=== PATIENT | male | born 1960 | race Caucasian/White ===

== ENCOUNTER 2022-03-11 14:25 | Inpatient (IN) | payer BC ==
--- NOTE | 2022-03-11 15:18 | ED ---
General Adult HPI - General Source: patient, EMS, RN notes reviewed Mode of arrival: EMS Limitations: no limitations <Ludin Pham - Last Filed: 03/11/22 15:48> <Danilo Almazan - Last Filed: 03/11/22 22:11> - General Stated complaint: CHF Time Seen by Provider: 03/11/22 14:32 - History of Present Illness Initial comments: This a 62-year-old male presents emergency Department from [facility] as a transfer for evaluation of dyspnea. Patient states that his been feeling increasing short of breath the last few days. Patient does admit that he has colorectal cancer Current chemotherapy under Dr. Flores treatment. Patient states he finishes infusion to states . Patient states that he knows he felt more short of breath this morning which presented to [facility]. Patient found to have bilateral trace pleural effusions, elevated BNP at 28,000, elevated troponin at 0.359 troponin did increase from initial troponin, lactic acid was significantly elevated at 6.3. Patient has no obvious signs of infection patient denies any prior cardiac disease including CHF, prior cardiac stent. Patient denies any leg swelling he does admit that he is very anxious and did receive Ativan. Patient was given a dose of Lasix last started on heparin prior arrival. (Ludin Pham) - Related Data Home Medications Medication Instructions Recorded Confirmed Diphenoxylate HCl/Atropine 1 tab PO BID PRN 03/11/22 03/11/22 [Lomotil 2.5-0.025 mg Tablet] HYDROcodone/APAP 5-325MG [[place] 1 tab PO Q4HR PRN 03/11/22 03/11/22 5-325] Lidocaine Viscous 2% [Xylocaine 1 dose MUCOUS MEM BID PRN 03/11/22 03/11/22 Viscous] Omeprazole [PriLOSEC] 40 mg PO DAILY 03/11/22 03/11/22 Allergies Allergy/AdvReac Type Severity Reaction Status Date / Time No Known Allergies Allergy Verified 03/11/22 16:17 Review of Systems ROS Other: All systems not noted in ROS Statement are negative. <Ludin Pham - Last Filed: 03/11/22 15:48> ROS Other: All systems not noted in ROS Statement are negative. <Danilo Almazan - Last Filed: 03/11/22 22:11> ROS Statement: Those systems with pertinent positive or pertinent negative responses have been documented in the HPI. Past Medical History History of Any Multi-Drug Resistant Organisms: None Reported Past Psychological History: Anxiety Smoking Status: Never smoker Past Alcohol Use History: None Reported Past Drug Use History: None Reported <Ludin Pham - Last Filed: 03/11/22 15:48> General Exam Limitations: no limitations General appearance: alert, in no apparent distress, anxious Head exam: Present: atraumatic, normocephalic, normal inspection Eye exam: Present: normal appearance, PERRL, EOMI. Absent: scleral icterus, conjunctival injection, periorbital swelling ENT exam: Present: normal exam, normal oropharynx, mucous membranes moist Neck exam: Present: normal inspection, full ROM. Absent: tenderness, meningismus, lymphadenopathy Respiratory exam: Present: decreased breath sounds. Absent: normal lung sounds bilaterally, respiratory distress, wheezes, rales, rhonchi, stridor Cardiovascular Exam: Present: normal rhythm, tachycardia, normal heart sounds. Absent: systolic murmur, diastolic murmur, rubs, gallop, clicks Neurological exam: Present: alert, oriented X3, CN II-XII intact <Ludin Pham Gloria - Last Filed: 03/11/22 15:48> Course Vital Signs 03/11/22 03/11/22 03/11/22 14:48 17:00 18:00 Temperature 97.6 F Pulse Rate 75 143 H 147 H Pulse Rate [ Ict Project Manager ] Respiratory 18 18 18 Rate Blood Pressure 128/103 138/109 O2 Sat by Pulse 96 99 99 Oximetry 03/11/22 03/11/22 03/11/22 18:31 19:00 19:18 Temperature Pulse Rate 147 H 147 H Pulse Rate [ 147 H Ict Project Manager ] Respiratory 18 24 Rate Blood Pressure 125/95 137/99 O2 Sat by Pulse 98 95 Oximetry 03/11/22 20:00 Temperature Pulse Rate 141 H Pulse Rate [ Ict Project Manager ] Respiratory 22 Rate Blood Pressure 128/100 O2 Sat by Pulse 98 Oximetry EKG Findings - EKG Comments: EKG Findings:: EKG performed at 15:05 sinus tachycardia short LA interval noted, LA interval 97 QRS 96 QT/QTC 345/427 - EKG Results: EKG: interpreted by ERMD <Ludin Pham - Last Filed: 03/11/22 15:48> Medical Decision Making <Ludin Pham - Last Filed: 03/11/22 15:48> - EKG Data -: EKG Interpreted by Me <Danilo Almazan - Last Filed: 03/11/22 22:11> - Medical Decision Making 62-year-old male presented as transfer from [facility] for possible CHF. Patient does have significant elevated BMP at 28,500, patient has had persistent tachycardia 120s to 140s. Patient's CT did not show any evidence of PE did interpret bilateral trace pleural effusion. Patient's troponin was elevated at 0.352 second troponin 0.359 lactic acid did go from 6.3-5.0 there is not obvious overt signs of heart failure on chest x-ray patient was given Lasix prior arrival 60 mg. There is concerns for possible infection in which antibiotics, blood cultures were ordered. Patient reportedly had hypoxia 80% upon arrival [facility] urinalysis does not reveal any significant findings. I did discuss case with Dr. Nowak that this may be related to his chemotherapy patient will have echocardiogram, cardiology evaluation, oncology evaluation (Ludin Pham) Patient was admitted and I was notified after staff also notified the admitting team the results of the laboratory studies at approximate 6:15 PM. Lactic acid is worse compared earlier at 10.3 now. Troponin is also slightly increased to 0.4. Remains tachycardic with stable vital signs otherwise. Still appears to have normal sinus tachycardia. Patient was worked up thoroughly at the outside hospital, and appears there are concerns for the elevated troponin, nSTEMI, volume overload state and possibly heart failure with pleural effusions, no evidence of PE on CT imaging. Patient was on antibiotics but I made the more broad-spectrum at this time to vancomycin and cefepime. Patient was already started on heparin for his nSTEMI and had already received an aspirin at the outside facility.Has been surgery completed already and patient has a chronic ostomy in place. Normal ostomy output. Since remarkable for the sinus tachycardia. Blood pressure is within normal limits. Patient saturating well on 2 L nasal cannula. Has remained afebrile throughout his stay in the emergency department. I spoke and evaluated the patient myself at this time. Symptoms remained unchanged. Has had a week of progressively worsening shortness of breath. Last chemo was 4 days ago. No cardiac history. Due to patient's current condition, I did consult the ICU attending/pulmonary attending, Dr. Salomon and spoke with him regarding the patient. He believes the patient is appropriate for 3 self at this time but recommended with the elevated lactic acid to trial the patient with small fluid boluses of 500 mL at a time to see if that improves his symptoms, particularly his Tachycardia and his labs. He otherwise was in agreement with the plan for treatment. We'll continue small fluid boluses, treatment for his an STEMI, and cardiac monitoring. Patient will be admitted to the stepdown floor. Cardiology was already consulted as was oncology. I spoke with oncology Dr. Morel who states that the patient is likely experiencing cardiac toxicity from a chemotherapy drug. She asked that the patient was taking 5-FU, which I did clarify and he is. I also spoke with Dr. Vick of cardiology regarding the current symptoms, workup, laboratory study results. He recommended current therapy, as well as addition of metoprolol due to the demand ischemia seen with elevated troponin and T-wave inversions. It doesn't troponin was ordered for this evening to help with the patient's heart rate, as his blood pressures are within acceptable limits at this time. We'll continue IV fluid hydration. I did discuss this entire plan with the patient's admitting physician, Dr. Landeros was in agreement with the plan. Repeat EKG was obtained and revealed continued T-wave inversions in lateral precordial leads likely from demand ischemia as well as sinus tachycardia. I updated the patient as well as his , and answered all questions that they had. Patient will be admitted to stepdown at this time in serious condition. (Danilo Almazan) - Lab Data Lab Results 03/11/22 03/11/22 03/11/22 Range/Units 16:00 16:00 16:39 Lactic Ac Sepsis Rflx Y Plasma Lactic Acid Stoney 10.3 H* (0.7-2.0) mmol/L Troponin I 0.435 H* (0.000-0.034) ng/mL - EKG Data EKG Comments: 12-lead Electrocardiogram Interpretation Note EKG was reviewed and interpreted by myself. 12-lead ECG performed at 1910 is interpreted by me as revealing sinus tachycardia at a rate of 148 beats per minute. [place] is normal. LA interval is 99 ms, QRS duration is 113 ms, QTc is 412 ms.. There are T-wave inversions in the lateral precordial leads likely secondary to demand ischemia from current cardiotoxicity from his chemotherapy drug.. R wave progression across the precordium was satisfactory. (Danilo Almazan) Critical Care Time Critical Care Time: Yes Total Critical Care Time: 35 <Danilo Almazan - Last Filed: 03/11/22 22:11> Critical Care Time: Upon my evaluation, this patient had a high probability of imminent or life- threatening deterioration due to cardiac toxicity from chemotherapy drug, demand ischemia, CHF, which required my direct attention, intervention, and personal management. I have personally provided 35 minutes of critical care time exclusive of time spent on separately billable procedures. Time includes review of laboratory data, radiology results, discussion with consultants, and monitoring for potential decompensation. Interventions were performed as documented in my note. (Danilo Almazan) Disposition Time of Disposition: 15:52 <Ludin Pham - Last Filed: 03/11/22 15:48> <Danilo Almazan - Last Filed: 03/11/22 22:11> Clinical Impression: Dyspnea, Tachycardia, NSTEMI (non-ST elevated myocardial infarction), Colon cancer, Pleural effusion, On 5-fluorouracil (5-FU) therapy, Lactic acidosis, Demand ischemia Disposition: ADMITTED IP TO THIS HOSP Condition: Poor
--- NOTE | 2022-03-11 15:31 | XR ---
EXAMINATION TYPE: XR chest 1V portable DATE OF EXAM: 03/11/2022 COMPARISON: NONE HISTORY: Short of breath TECHNIQUE: Single view FINDINGS: There is no heart failure nor confluent pneumonic infiltrate. There is coarse interstitial density in the lower lung [place] and more on the right side. There is right central venous catheter w ith tip in the superior vena cava. There are chest leads. Heart is slightly enlarged. IMPRESSION: No obvious heart failure. Cardiomegaly with increased interstitial markings that could be pulmonary fibrosis.
[2022-03-11] MEDS ORDERED: AZITHROMYCIN 500 MG in SODIUM CHLORIDE 0.9% 250 ML IVPB STA (15:34)
[2022-03-11] MEDS ORDERED: HEPARIN SODIUM 1,000 UN/ML (10ML VL) IV ONE (15:53)
[2022-03-11] MEDS ORDERED: HEPARIN SODIUM 1,000 UN/ML (10ML VL) IV PRN (15:53)
[2022-03-11] MEDS ORDERED: NITROGLYCERIN SL TABS 0.4 MG TAB SUBLINGUAL PRN (15:53)
[2022-03-11] MEDS ORDERED: HEPARIN SOD,PORK IN 0.45% NACL 25,000 UNIT in 0.45% NACL 1 250ML.BAG IV SCH (16:00)
[2022-03-11] MEDS ORDERED: LACTATED RINGERS 1,000 ML IV SCH (18:15)
[2022-03-11] MEDS ORDERED: SODIUM CHLORIDE 0.9% 500 ML 500 ML IV STA (18:26)
[2022-03-11] MEDS ORDERED: VANCOMYCIN IV PER PHARMACY 1 EACH MISC MISCELLANE PRN (18:27)
[2022-03-11] MEDS ORDERED: VANCOMYCIN 1,500 MG in SODIUM CHLORIDE 0.9% 500 ML 500 ML IVPB ONE (18:45)
[2022-03-11] MEDS ORDERED: METOPROLOL SUCCINATE (ER) 50 MG TAB.ER.24H PO STA (18:51)
[2022-03-11 23:14] LABS: Albumin 3.3 g/dL (3.5-5.0); Calcium 8.3 mg/dL (8.4-10.2); Magnesium 2.2 mg/dL (1.6-2.3); Potassium 4.8 mmol/L (3.5-5.1); Total Bilirubin 2.5 mg/dL (0.2-1.3); Total Protein 5.9 g/dL (6.3-8.2)
[2022-03-11 23:30] LABS: Anisocytosis Slight; Basophils # (A) 0.1 k/uL (0-0.2); Basophils % (A) 1 %; Eosinophils % (A) 0 %; HCT 38.8 % (39.0-53.0); HGB 11.9 gm/dL (13.0-17.5); Hypochromasia Marked; Lymphocytes # (A) 0.8 k/uL (1.0-4.8); Lymphocytes % (A) 11 %; MCH 29.7 pg (25.0-35.0); MCHC 30.8 g/dL (31.0-37.0); MCV 96.6 fL (80.0-100.0); Macrocytosis Slight; Mean Platelet Volume 11.2; Monocytes # (A) 0.1 k/uL (0-1.0); Monocytes % (A) 1 %; Neutrophils % (A) 87 %; Platelet Count 163 k/uL (150-450); RBC 4.02 m/uL (4.30-5.90); RDW 18.2 % (11.5-15.5); WBC 6.9 k/uL (3.8-10.6)
[2022-03-12] MEDS ORDERED: SODIUM CHLORIDE 0.9% 500 ML 250 ML IV ONE
[2022-03-12] MEDS ORDERED: metroNIDAZOLE-NS PMX 500 MG in SALINE 1 100ML.BAG IVPB SCH
[2022-03-12] MEDS ORDERED: CEFEPIME 2 GM in SODIUM CHLORIDE 0.9% 100 ML IVPB SCH ×2
[2022-03-12 00:01] LABS: Large Platelets Present
[2022-03-12] MEDS ORDERED: FUROSEMIDE 10 MG/ML 2 ML VIAL IV STA (00:33)
[2022-03-12] MEDS ORDERED: FUROSEMIDE 10 MG/ML 4 ML VIAL ONE (00:35)
--- NOTE | 2022-03-12 00:58 | XR ---
EXAMINATION TYPE: XR chest 1V portable DATE OF EXAM: 03/12/2022 COMPARISON: Yesterday HISTORY: Short of breath TECHNIQUE: Single view FINDINGS: Heart appears enlarged. There is some minimal pulmonary interstitial edema. There is right central venous catheter with tip in the superior vena cava. There is slight blunting of the right cos tophrenic angle. There are chest leads. IMPRESSION: There is some mild pulmonary interstitial edema which is the same or slightly increased c ompared to yesterday. There is likely a very small right pleural effusion. Mild heart failure is poss ible. No pulmonary consolidation.
[2022-03-12 01:02] LABS: Glucose,Whole Blood 100 mg/dL (70-110)
[2022-03-12] MEDS ORDERED: PIPERACILLIN-TAZOBACTAM 3.375 GM in SODIUM CHLORIDE 0.9% 100 ML IVPB SCH (03:00)
[2022-03-12] MEDS: VANCOMYCIN 1,500 MG in SODIUM CHLORIDE 0.9% 500 ML 500 ML IVPB SCH ×2 (08:36→21:08)
[2022-03-12] MEDS: PIPERACILLIN-TAZOBACTAM 3.375 GM in SODIUM CHLORIDE 0.9% 100 ML IVPB SCH ×2 (08:36→18:13)
[2022-03-12] MEDS ORDERED: METOPROLOL SUCCINATE (ER) 50 MG TAB.ER.24H PO SCH (09:00)
[2022-03-12] MEDS ORDERED: ASPIRIN 325 MG TAB PO SCH (09:00)
--- NOTE | 2022-03-12 13:24 | P.CNPUL ---
History of Present Illness Consult date: 03/12/22 Requesting physician: Da Landeros Reason for consult: other (Congestive heart failure and elevated lactic acid) Chief complaint: Shortness of breath. History of present illness: This is a 62-year-old white male with history of stage IV colon cancer. Patient was diagnosed a few years back, and he received recently chemotherapy this was last Sunday. Since then the patient has been complaining of shortness of breath, patient presented to [place] emergency room, and he was complaining of shortness of breath, workup revealed evidence of cardiomegaly, congestive heart failure, and he had a CT angiogram of the chest showed no evidence of pulmonary embolism. Patient was transferred to [facility], and he was found to have significantly elevated BNP, his troponin was also elevated, and he had significantly elevated lactic acid initially was 6.3 and later showed some rise in his lactic acid. Patient has been complaining of mostly shortness of breath, no cough, no wheezing, no nausea no vomiting no abdominal pain. Patient was given small boluses of fluids because of his congestive heart failure and elevated lactic acid, however after he arrived to the floor patient developed full-blown congestive heart failure symptoms, had to be given Lasix, and had to be transferred to the ICU. 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 Cardiology consultation is pending. Patient is not a great historian. He seems to be generally weak, frail, and unable to volunteer much history Review of Systems Patient is a poor historian, however according to the the patient has been complaining of generalized weakness, fatigue malaise, no fever no chills, no cough, no hemoptysis, no nausea, no vomiting, no abdominal pain. Past Medical History Past Medical History: Cancer, Heart Failure, Osteoarthritis (OA), Sleep Apnea/CPAP/BIPAP Additional Past Medical History / Comment(s): Rectal Cancer History of Any Multi-Drug Resistant Organisms: None Reported Past Surgical History: Bowel Resection Past Psychological History: Anxiety Smoking Status: Never smoker Past Alcohol Use History: None Reported Past Drug Use History: None Reported Medications and Allergies Home Medications Medication Instructions Recorded Confirmed Type Diphenoxylate HCl/Atropine 1 tab PO BID PRN 03/11/22 03/11/22 History [Lomotil 2.5-0.025 mg Tablet] HYDROcodone/APAP 5-325MG [[place] 1 tab PO Q4HR PRN 03/11/22 03/11/22 History 5-325] Lidocaine Viscous 2% [Xylocaine 1 dose MUCOUS MEM BID PRN 03/11/22 03/11/22 History Viscous] Omeprazole [PriLOSEC] 40 mg PO DAILY 03/11/22 03/11/22 History Allergies Allergy/AdvReac Type Severity Reaction Status Date / Time No Known Allergies Allergy Verified 03/11/22 16:17 Physical Exam Vitals: Vital Signs Temp Pulse Pulse Resp BP BP Pulse Ox 03/12/22 11:00 110 H 12 101/75 97 03/12/22 10:00 118 H 10 L 114/93 98 03/12/22 09:07 98 03/12/22 09:00 124 H 33 H 97/84 98 03/12/22 08:00 98.0 F 131 H 25 H 126/90 94 L 03/12/22 07:00 98.0 F 32 H 120/79 99 03/12/22 06:00 101.7 F H 130 H 47 H 106/85 98 03/12/22 05:00 99.4 F 129 H 0 L 110/89 99 03/12/22 04:00 99.4 F 134 H 31 H 110/89 98 03/12/22 03:00 100.4 F H 126 H 31 H 119/84 95 03/12/22 02:00 101.5 F H 128 H 36 H 126/87 95 03/12/22 01:33 125 H 32 H 112/84 91 L 03/12/22 01:20 130 H 03/12/22 00:11 101.5 F H 138 H 24 111/82 95 03/11/22 21:06 101.6 F H 140 H 22 120/88 95 03/11/22 20:00 141 H 22 128/100 98 03/11/22 19:18 147 H 03/11/22 19:00 147 H 24 137/99 95 03/11/22 18:31 147 H 18 125/95 98 03/11/22 18:00 147 H 18 138/109 99 03/11/22 17:00 143 H 18 99 03/11/22 14:48 97.6 F 75 18 128/103 96 Intake and Output 03/11/22 03/12/22 03/12/22 22:59 06:59 14:59 Intake Total 289.667 601 Output Total 1450 700 Balance -1160.333 -99 Intake: IV 200 601 Cefepime 2 gm In Sodium 100 Chloride 0.9% 100 ml @ 25 mls/hr IVPB Q8HR [facility] Rx# :[id number] Piperacillin-Tazobactam 3 100 .375 gm In Sodium Chloride 0.9% 100 ml @ 25 mls/hr IVPB Q8H [facility] Rx#: [id number] Vancomycin 1,500 mg In 501 Sodium Chloride 0.9% 500 ml 500 ml @ 167 mls/hr IVPB Q12H [facility] Rx#: [id number] metroNIDAZOLE-NS PMX 500 100 mg In Saline 1 100ml.bag @ 100 mls/hr IVPB Q12H [facility] Rx#:[id number] Intake, IV Titration 89.667 Amount Heparin Sod,Pork in 0.45% 89.667 NaCl 25,000 unit In 0.45 % NaCl 1 250ml.bag @ 11. 603 UNITS/KG/HR 10 mls/hr IV .Q24H [facility] Rx#: [id number] Output: Urine 1450 700 Other: Voiding Method External Catheter External Catheter External Catheter # Voids 1 Weight 85 kg Limitations: Patient seems to be extremely frail weak, and chronically ill. General appearance: Frail looking, ill-looking, and chronically ill-looking. Head exam: Atraumatic, normocephalic. Eye exam: normal appearance, PERRL, EOMI. no evidence of scleral icterus, conjunctival injection, periorbital swelling ENT exam: normal exam, normal oropharynx, mucous membranes moist Neck exam: normal inspection, full ROM. No evidence of: tenderness, meningismus, lymphadenopathy Respiratory exam: Symmetrical chest expansion, minimal fine crackles at the bases no rhonchi and no wheezes Cardiovascular Exam: Distant S1 and S2, no S3 gallop, no murmur. Neurological exam: Alert oriented 3, however he seems to be extremely frail and very weak Results - Laboratory Findings CBC and BMP: 03/11/22 22:37 03/12/22 02:35 Abnormal lab findings: Abnormal Labs 03/11/22 03/11/22 03/11/22 16:00 16:00 19:24 RBC Hgb Hct MCHC RDW Lymphocytes # APTT Carbon Dioxide BUN Creatinine Glucose Plasma Lactic Acid Stoney 10.3 H* Calcium Total Bilirubin AST ALT Troponin I 0.435 H* 0.547 H* Total Protein Albumin 03/11/22 03/11/22 03/11/22 19:24 22:37 22:37 RBC 4.02 L Hgb 11.9 L Hct 38.8 L MCHC 30.8 L RDW 18.2 H Lymphocytes # 0.8 L APTT Carbon Dioxide BUN Creatinine Glucose Plasma Lactic Acid Stoney 9.2 H* Calcium Total Bilirubin AST ALT Troponin I 0.530 H* Total Protein Albumin 03/11/22 03/11/22 03/11/22 22:37 22:37 22:37 RBC Hgb Hct MCHC RDW Lymphocytes # APTT 41.9 H Carbon Dioxide 18 L BUN 36 H Creatinine Glucose 106 H Plasma Lactic Acid Stoney 11.2 H* Calcium 8.3 L Total Bilirubin 2.5 H AST 189 H ALT 133 H Troponin I Total Protein 5.9 L Albumin 3.3 L 03/12/22 03/12/22 03/12/22 02:04 02:35 11:48 RBC Hgb Hct MCHC RDW Lymphocytes # APTT 39.3 H 92.8 H Carbon Dioxide BUN Creatinine 1.26 H Glucose Plasma Lactic Acid Stoney Calcium Total Bilirubin AST ALT Troponin I Total Protein Albumin - Diagnostic Findings Chest x-ray: image reviewed (As noted in HPI) Assessment and Plan Assessment: Impression: Acute systolic congestive heart failure is strongly suspected, 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 Acute hypoxic respiratory failure secondary to acute systolic congestive heart failure and pulmonary edema History of advanced stage colon cancer on chemotherapy history of colostomy. History of GERD. Chronic pain syndrome secondary advanced stage colon cancer Elevated lactic acid could be secondary to hypoperfusion, secondary to LV dysfunction. Possible non-ST elevation myocardial infarction Significantly elevated proBNP level of 49,700 Recommendation: Continue diuretics Continue antibiotics empirically Cardiology to see her on consultation Infectious disease to see her on consultation Close monitoring in the ICU Check blood cultures Check pro calcitonin Prognosis is extremely poor and guarded We will continue to follow Patient is critically ill and will remain in the ICU for now Time with Patient: Greater than 30
--- NOTE | 2022-03-12 13:24 | P.HPIM ---
History of Present Illness H&P Date: 03/11/22 Chief Complaint: Short of breath This is a pleasant 62-year-old patient, follows with Dr. Candida Oshea. Patient follows with oncologist Dr. Flores. Patient has a diagnosis of colorectal cancer diagnosed about 4/2 years ago. Recently patient had bowel obstruction surgery with Dr. Lott. And has a resulting colostomy. Currently getting chemotherapy. Last chemotherapy was 4 days ago. Patient has become short of breath. Tired. Decreased appetite. Patient initially presented to outside hospital read his UA was negative, lactic acid was 5 troponin was 0.359 tachycar dic negative for COVID RSV influenza. ProBNP was 28,300. Given IV fluids. No fever no chills. Tired rundown. Patient is accompanied by the at the ER.- Where I saw the patient. Patient has no previous cardiac history. No urinary symptoms. Stool output has not changed. Review of systems: GEN.: Tired, weight loss, rundown EYES: None HEENT: None NECK: None RESPIRATORY: None CARDIOVASCULAR: None GASTROINTESTINAL: None GENITOURINARY: None MUSCULOSKELETAL: None LYMPHATICS: None HEMATOLOGICAL: None PSYCHIATRY: None NEUROLOGICAL: None Past medical history to include: Colorectal cancer with resultant colostomy, osteoarthritis, questionable CHF Social history: . Does not smoke or drink alcohol. [place] Family history: Reviewed, noncontributory to presentation Physical examination: VITAL SIGNS: 97.6, 143, 18, 138/109, 99% on room air GENERAL: BMI 24.1, laying in bed awake, tired appearing. EYES: Pupils equal. Conjunctiva normal. HEENT: External appearance of nose and ears normal, oral cavity dry mucous membranes. NECK: JVD not raised; masses not palpable. HEART: First and second heart sounds are normal; no edema. LUNGS: Respiratory rate normal; clear to auscultation. ABDOMEN: Soft, nontender, liver spleen not palpable, no masses palpable colostomy bag. PSYCH: Alert and oriented x3; mood and affect tiredl. MUSCULOSKELETAL:No Clubbing/cyanosis;muscles-grossly intact NEUROLOGICAL: Cranial nerves grossly intact; no facial asymmetry, power and sensation grossly intact. LYMPHATICS: No lymph nodes palpable in the axilla and neck INVESTIGATIONS, reviewed in the clinical context: Blood work from onset hospital: UA negative, lactic acid 5, COVID 19/RSV/influenza/not detected White count 8.4 hemoglobin 13.1 platelets 296 proBNP 28,300 sodium 138 potassium 4.8 BUN 34 creatinine 1.1 AST [address] chest: Negative for PE, scattered nodular density EKG tracing personally reviewed by me-sinus tachycardia with flipped T waves Assessment and plan: -Suspect chemotherapy-induced myocarditis, manifesting as sinus tachycardia, troponin leak, resulting in shortness of breath IV fluids. Supportive care. Telemetry. Watch for arrhythmias. Cardiology consult -Type II lactic acidosis. No clinical evidence of infection. IV fluids. -Clinical dehydration IV fluids -Colostomy care -Troponin leak from myocarditis secondary to chemotherapy IV fluids. Telemetry. Soft diet. Consultation to cardiology, pulmonary, oncology. Care was discussed with the patient and at the bedside. Questions answered. Given the complexity and severity of patient's condition expect the patient to be in the hospital at least for 2 overnights Past Medical History Past Medical History: Cancer, Heart Failure, Osteoarthritis (OA), Sleep Apnea/CPAP/BIPAP Additional Past Medical History / Comment(s): Rectal Cancer History of Any Multi-Drug Resistant Organisms: None Reported Past Surgical History: Bowel Resection Past Psychological History: Anxiety Smoking Status: Never smoker Past Alcohol Use History: None Reported Past Drug Use History: None Reported Medications and Allergies Home Medications Medication Instructions Recorded Confirmed Type Diphenoxylate HCl/Atropine 1 tab PO BID PRN 03/11/22 03/11/22 History [Lomotil 2.5-0.025 mg Tablet] HYDROcodone/APAP 5-325MG [Chama 1 tab PO Q4HR PRN 03/11/22 03/11/22 History 5-325] Lidocaine Viscous 2% [Xylocaine 1 dose MUCOUS MEM BID PRN 03/11/22 03/11/22 History Viscous] Omeprazole [PriLOSEC] 40 mg PO DAILY 03/11/22 03/11/22 History Allergies Allergy/AdvReac Type Severity Reaction Status Date / Time No Known Allergies Allergy Verified 03/11/22 16:17 Physical Exam Vitals: Vital Signs Temp Pulse Pulse Resp BP BP Pulse Ox 03/12/22 11:00 110 H 12 101/75 97 03/12/22 10:00 118 H 10 L 114/93 98 03/12/22 09:07 98 03/12/22 09:00 124 H 33 H 97/84 98 03/12/22 08:00 98.0 F 131 H 25 H 126/90 94 L 03/12/22 07:00 98.0 F 32 H 120/79 99 03/12/22 06:00 101.7 F H 130 H 47 H 106/85 98 03/12/22 05:00 99.4 F 129 H 0 L 110/89 99 03/12/22 04:00 99.4 F 134 H 31 H 110/89 98 03/12/22 03:00 100.4 F H 126 H 31 H 119/84 95 03/12/22 02:00 101.5 F H 128 H 36 H 126/87 95 03/12/22 01:33 125 H 32 H 112/84 91 L 03/12/22 01:20 130 H 03/12/22 00:11 101.5 F H 138 H 24 111/82 95 03/11/22 21:06 101.6 F H 140 H 22 120/88 95 03/11/22 20:00 141 H 22 128/100 98 03/11/22 19:18 147 H 03/11/22 19:00 147 H 24 137/99 95 03/11/22 18:31 147 H 18 125/95 98 03/11/22 18:00 147 H 18 138/109 99 03/11/22 17:00 143 H 18 99 03/11/22 14:48 97.6 F 75 18 128/103 96 Intake and Output 03/11/22 03/12/22 03/12/22 22:59 06:59 14:59 Intake Total 289.667 576 Output Total 1450 600 Balance -1160.333 -24 Intake: IV 200 576 Cefepime 2 gm In Sodium 100 Chloride 0.9% 100 ml @ 25 mls/hr IVPB Q8HR [facility] Rx# :[id number] Piperacillin-Tazobactam 3 75 .375 gm In Sodium Chloride 0.9% 100 ml @ 25 mls/hr IVPB Q8H [facility] Rx#: [id number] Vancomycin 1,500 mg In 501 Sodium Chloride 0.9% 500 ml 500 ml @ 167 mls/hr IVPB Q12H [facility] Rx#: [id number] metroNIDAZOLE-NS PMX 500 100 mg In Saline 1 100ml.bag @ 100 mls/hr IVPB Q12H [facility] Rx#:[id number] Intake, IV Titration 89.667 Amount Heparin Sod,Pork in 0.45% 89.667 NaCl 25,000 unit In 0.45 % NaCl 1 250ml.bag @ 11. 603 UNITS/KG/HR 10 mls/hr IV .Q24H [facility] Rx#: [id number] Output: Urine 1450 600 Other: Voiding Method External Catheter External Catheter # Voids 1 Weight 85 kg Results CBC & Chem 7: 03/11/22 22:37 03/12/22 02:35 Labs: Abnormal Lab Results - Last 24 Hours (Table) 03/11/22 03/11/22 03/11/22 Range/Units 16:00 16:00 19:24 RBC (4.30-5.90) m/uL Hgb (13.0-17.5) gm/dL Hct (39.0-53.0) % MCHC (31.0-37.0) g/dL RDW (11.5-15.5) % Lymphocytes # (1.0-4.8) k/uL APTT (22.0-30.0) sec Carbon Dioxide (22-30) mmol/L BUN (9-20) mg/dL Creatinine (0.66-1.25) mg/dL Glucose (74-99) mg/dL Plasma Lactic Acid Stoney 10.3 H* (0.7-2.0) mmol/L Calcium (8.4-10.2) mg/dL Total Bilirubin (0.2-1.3) mg/dL AST (17-59) U/L ALT (4-49) U/L Troponin I 0.435 H* 0.547 H* (0.000-0.034) ng/mL Total Protein (6.3-8.2) g/dL Albumin (3.5-5.0) g/dL 03/11/22 03/11/22 03/11/22 Range/Units 19:24 22:37 22:37 RBC 4.02 L (4.30-5.90) m/uL Hgb 11.9 L (13.0-17.5) gm/dL Hct 38.8 L (39.0-53.0) % MCHC 30.8 L (31.0-37.0) g/dL RDW 18.2 H (11.5-15.5) % Lymphocytes # 0.8 L (1.0-4.8) k/uL APTT (22.0-30.0) sec Carbon Dioxide (22-30) mmol/L BUN (9-20) mg/dL Creatinine (0.66-1.25) mg/dL Glucose (74-99) mg/dL Plasma Lactic Acid Stoney 9.2 H* (0.7-2.0) mmol/L Calcium (8.4-10.2) mg/dL Total Bilirubin (0.2-1.3) mg/dL AST (17-59) U/L ALT (4-49) U/L Troponin I 0.530 H* (0.000-0.034) ng/mL Total Protein (6.3-8.2) g/dL Albumin (3.5-5.0) g/dL 03/11/22 03/11/22 03/11/22 Range/Units 22:37 22:37 22:37 RBC (4.30-5.90) m/uL Hgb (13.0-17.5) gm/dL Hct (39.0-53.0) % MCHC (31.0-37.0) g/dL RDW (11.5-15.5) % Lymphocytes # (1.0-4.8) k/uL APTT 41.9 H (22.0-30.0) sec Carbon Dioxide 18 L (22-30) mmol/L BUN 36 H (9-20) mg/dL Creatinine (0.66-1.25) mg/dL Glucose 106 H (74-99) mg/dL Plasma Lactic Acid Stoney 11.2 H* (0.7-2.0) mmol/L Calcium 8.3 L (8.4-10.2) mg/dL Total Bilirubin 2.5 H (0.2-1.3) mg/dL AST 189 H (17-59) U/L ALT 133 H (4-49) U/L Troponin I (0.000-0.034) ng/mL Total Protein 5.9 L (6.3-8.2) g/dL Albumin 3.3 L (3.5-5.0) g/dL 12/04/22 12/04/22 Range/Units 02:04 02:35 RBC (4.30-5.90) m/uL Hgb (13.0-17.5) gm/dL Hct (39.0-53.0) % MCHC (31.0-37.0) g/dL RDW (11.5-15.5) % Lymphocytes # (1.0-4.8) k/uL APTT 39.3 H (22.0-30.0) sec Carbon Dioxide (22-30) mmol/L BUN (9-20) mg/dL Creatinine 1.26 H (0.66-1.25) mg/dL Glucose (74-99) mg/dL Plasma Lactic Acid Stoney (0.7-2.0) mmol/L Calcium (8.4-10.2) mg/dL Total Bilirubin (0.2-1.3) mg/dL AST (17-59) U/L ALT (4-49) U/L Troponin I (0.000-0.034) ng/mL Total Protein (6.3-8.2) g/dL Albumin (3.5-5.0) g/dL Thrombosis Risk Factor Assmnt - Choose All That Apply Any of the Below Risk Factors Present?: No Other Risk Factors: Yes Each Risk Factor Represents 2 Points: Age 61-74 years, Malignancy Other congenital or acquired thrombophilia - If yes, enter type in comment: No Thrombosis Risk Factor Assessment Total Risk Factor Score: 4 Thrombosis Risk Factor Assessment Level: Moderate Risk
--- NOTE | 2022-03-12 13:32 | P.PN ---
Progress Note - Text Progress Note Date: 03/12/22 Chief Complaint: Short of breath This is a pleasant 62-year-old patient, follows with Dr. Candida Oshea. Patient follows with oncologist Dr. Flores. Patient has a diagnosis of colorectal cancer diagnosed about 4/2 years ago. Recently patient had bowel obstruction surgery with Dr. Lott. And has a resulting colostomy. Currently getting chemotherapy. Last chemotherapy was 4 days ago. Patient has become short of breath. Tired. Decreased appetite. Patient initially presented to outside hospital read his UA was negative, lactic acid was 5 troponin was 0.359 tachycardic negative for COVID RSV influenza. ProBNP was 28,300. Given IV fluids. No fever no chills. Tired rundown. Patient is accompanied by the at the ER.-Where I saw the patient. Patient has no previous cardiac history. No urinary symptoms. Stool output has not changed. Patient bit of mid suspected chemotherapy-induced myocarditis, causing troponin leak sinus tachycardia. Started on IV fluids being moved to ICU 03/12/2022: ICU: Patient spiked a fever last night. Patient empirically on vancomycin. Zosyn. Started on IV Lasix. IV fluids held. Lopressor. Poor appetite. Tired. Discussed with at the bedside. Active Medications Aspirin (Aspirin 325 Mg Tab) 325 mg PO DAILY [facility] Last Admin: 03/12/22 08:36 Dose: 325 mg Furosemide (Furosemide 10 Mg/Ml 2 Ml Vial) 20 mg IV DAILY [facility] Heparin Sodium (Porcine) (Heparin Sodium,Porcine/Pf 5,000 Unit/0.5 Ml Syringe) 5,000 unit SQ Q8HR [facility] Vancomycin HCl 1,500 mg/ (Sodium Chloride) 500 mls @ 167 mls/hr IVPB Q12H [facility] Last Admin: 03/12/22 08:36 Dose: 167 mls/hr Piperacillin Sod/Tazobactam (Sod 3.375 gm/ Sodium Chloride) 100 mls @ 25 mls/hr IVPB Q8H [facility]; Protocol Last Admin: 03/12/22 08:36 Dose: 25 mls/hr Lorazepam (Lorazepam 2 Mg/Ml Inj) 1 mg IV Q4HR PRN PRN Reason: Anxiety Metoprolol Tartrate (Metoprolol Tartrate 25 Mg Tab) 25 mg PO BID [facility] Miscellaneous Information (Vancomycin Trough Due 1 Each Misc) 1 each MISCELLANE ONCE ONE Stop: 12/05/22 19:01 Nitroglycerin (Nitroglycerin Sl Tabs 0.4 Mg Tab) 0.4 mg SUBLINGUAL Q5M PRN PRN Reason: Chest Pain Past medical history to include: Colorectal cancer with resultant colostomy, osteoarthritis, questionable CHF Social history: . Does not smoke or drink alcohol. [place] Family history: Reviewed, noncontributory to presentation Physical examination: VITAL SIGNS: 1.7, 1:30, 31, 106/85, 98% on 2 L GENERAL: laying in bed tired appearing. EYES: Pupils equal. Conjunctiva normal. HEENT: External appearance of nose and ears normal, oral cavity dry mucous membranes. NECK: JVD not raised; masses not palpable. HEART: First and second heart sounds are normal; no edema. LUNGS: Respiratory rate normal; clear to auscultation. ABDOMEN: Soft, nontender, liver spleen not palpable, no masses palpable colostomy bag. PSYCH: Alert and oriented x3; mood and affect tired MUSCULOSKELETAL:No Clubbing/cyanosis;muscles-grossly intact INVESTIGATIONS, reviewed in the clinical context: 03/12/2022: WBC 6.9 hemoglobin 11.9 platelets 163 potassium 4.8 BUN 36 creatinine 1.24. Lactic acid 11.2 AST 189 ALT 133 Blood work from onset hospital: UA negative, lactic acid 5, COVID 19/RSV/influenza/not detected White count 8.4 hemoglobin 13.1 platelets 296 proBNP 28,300 sodium 138 potassium 4.8 BUN 34 creatinine 1.1 AST [address] chest: Negative for PE, scattered nodular density EKG tracing personally reviewed by me-sinus tachycardia with flipped T waves Assessment and plan: -Suspect chemotherapy-induced myocarditis, manifesting as sinus tachycardia, troponin leak, resulting in shortness of breath IV fluids. Supportive care. Telemetry. Watch for arrhythmias. Cardiology consult -Sepsis, with fever, tachycardia lactic acidosis: New diagnosis Empirically started on IV vancomycin and IV Zosyn. UA,, blood culture, -Clinical dehydration: Better IV fluids -Colostomy care -Troponin leak from myocarditis secondary to chemotherapy IV fluids. Telemetry. Soft diet. IV vancomycin, IV Zosyn. Lopressor. IV fluids discontinued. Discussed with family at the bedside.
[2022-03-12] MEDS: METOPROLOL TARTRATE 25 MG TAB PO SCH ×2 (13:41→21:08)
--- NOTE | 2022-03-12 14:02 | CONS ---
CONSULTATION HISTORY OF PRESENT ILLNESS: Danilo is a 62-year-old gentleman with history of colorectal cancer for which he is on chemotherapy, has been transferred from [facility] where he initially presented with shortness of breath, elevated BNP, and bilateral pleural effusions. His lactic acid is also elevated. The patient has mildly elevated troponin also. He denies any chest pain. There is no prior history of coronary artery disease or congestive heart failure. He has recently completed chemo and has had episodes of shortness of breath in the past with chemotherapy, but this one was getting progressively worse, hence came in. His lactic acid is elevated, BNP, as is the troponin. Hemoglobin is 11.9. A chest x-ray reveals mild interstitial edema. An echocardiogram that I interpreted at bedside showed severe LV systolic dysfunction. The patient's troponin elevation is of unclear clinical significance. There is no definite pattern to it, could be related to renal insufficiency, recent chemotherapy or congestive heart failure. The patient's clinical presentation is definitely consistent with acute-onset congestive heart failure secondary to LV systolic dysfunction. The patient is receiving antibiotics also. PAST MEDICAL HISTORY: Significant for colorectal cancer, on chemotherapy. MEDICATIONS: As charted. FAMILY HISTORY: Negative for premature coronary artery disease. SOCIAL HISTORY: Negative for current smoking, EtOH or drug abuse. REVIEW OF SYSTEMS: A review of systems has been performed, pertinents are as documented. PHYSICAL EXAMINATION: VITAL SIGNS: Heart rate is 130 beats per minute, blood pressure is 126/92, respiratory rate is 20, afebrile. NECK: There is no jugular venous distention. CHEST: Reveals good air entry bilaterally. HEART: Reveals first and second heart sounds. No gallop, no murmur. ABDOMEN: Soft. EXTREMITIES: Did not reveal any edema. Peripheral pulses are felt. ASSESSMENT: 1. Elevated troponin probably related to the cardiomyopathy, recent chemotherapy and congestive heart failure. 2. Dilated cardiomyopathy with severe LV dysfunction. 3. Acute onset systolic heart failure. 4. Colorectal cancer and chemotherapy. PLAN: I will stop the IV heparin, start the patient on subcu heparin, start him on aspirin 81 mg daily with beta blockers, diuretics and JOEL inhibitors depending upon how the blood pressure tolerates it. MMODL / IJN: [id number] /
[2022-03-12 14:11] LABS: Appearance,Urine Cloudy (Clear); Bacteria,Urine Rare /hpf; Bilirubin,Urine Negative (Negative); Blood,Urine Trace (Negative); Color,Urine Yellow; Glucose,Urine (UA) Negative (Negative); Hyaline Casts,Urine 3 /lpf (0-2); Ketones,Urine Negative (Negative); Leukocyte Esterase,Urine Negative (Negative); Mucus,Urine Rare /hpf; Nitrite,Urine Negative (Negative); Protein,Urine 1+ (Negative); RBC,Urine 1 /hpf (0-5); Specific Gravity,Urine 1.017 (1.001-1.035); Squamous Epithelial Cell,Urine <1 /hpf (0-4); Urobilinogen,Urine <2.0 mg/dL (<2.0); WBC,Urine 1 /hpf (0-5)
--- NOTE | 2022-03-12 16:02 | P.CONS ---
History of Present Illness - Reason for Consult Consult date: 03/12/22 colon cancer on chemotherapy Requesting physician: Da Landeros - Chief Complaint DOWNS - History of Present Illness Mr. Rivero is a very pleasant 62 yo male with long standing history of colorectal cancer, being treated by Dr. Flores with palliative chemotherapy with FOLFIRI/Zaltrap, who is here for increasing SOB. Presented to [facility] for this. Work up there with fluid overload on CXR, elevated BNP, and elevated lactic acid of 6. No cardiac history. Transferred here for further management. Here, lactic acid found to be 10. Being treated with heparin drip for NSTEMI with cardiology consult. We were consulted due to pt being on chemotherapy, and for his lab abnormalities. Overall he does not feel bad. Actually says that he feels better. Oncologic History: Mr Rivero is a pleasant WM, with minor medical problems at baseline. The pt had noted loose stools with mucus and small amounts of blood off and on since spring. the symptoms became more prominent and persistent since late summer 2017. Due to progression , he sought attention with his PCP, and was referred to GI. He had an EGD and colonoscopy at [facility] on 03/22/18, revealing high grade obstruction due to a mass in the rectum. The scope could not be passed beyond. Biopsy was positive for at least in situ adenoca , with suspected stromal invasion. Biopsies from the EGD were negative. CT of the AP on 03/06/[address] of the CAP from 03/27/18 showed scattered pulmonary nodules, thickening of the mucosa of the lower sigmoid extending into the rectum, with soft tissue extending into the perirectal tissue left and posteriorly, 4.1 x 3.5 cm. MRI pelvis from 04/03/18 at [facility], showed a large rectal mass, 7.1 cm from the anal verge, 12 - 6 o'clock, invading the mesorectal fascia. Adjacent organs were uninvolved. There was evidence of multiple tumor deposits and suspicious sub cm nodes in the mesorectum. EUS from 04/15/18 showed a T3 tumor. However the scope could not be passed beyond the lower end of the tumor PET scan from 04/16/18 showed uptake in the rectal mass, and left perirectal susi mass ( 1.7 x1.6 cm, SUV 14.24). Lung nodules showed no uptake. Mild uptake was seen in the mediastinal nodes, which were sub cm, more c/w with in flammation/ old granulomatous disease. He was then referred here for further evaluation and recommendations He denied any prior colonoscopies. He has no family h/o colorectal ca/uterine ca in 1st degree relatives. He had an associated 40 lb wt loss since early 2017. He was referred to Rad Onc and started on chemoRT with Xeloda on 04/30/18. He completed treatment on 06/07/18 He proceed to surgery on 08/28/18. Pathology revealed a 3 x 2.5 cm residual T3 tumor, with 1/8 nodes +ve. margins were uninvolved. He then started adjuvant FOLFOX on 10/01/18 and is s/p 10 cycles. Neulasta was added with C4, which was delayed a week due to low counts. He received IV iron post C 7 for low iron sat. He completed chemo on 02/15/19 CT CAP in 02/26 showed growth in size of a LLL nodule to 1.4 cm, previously 2-3 mm, as well as developement of additional nodules b/l this was felt to be suspicious for metastatic recurrence. Patient was referred for left lower lung nodule biopsy. IR locally felt that this was not accessible. The patient was therefore referred to [facility]. He was informed that he will need to take his films to that institution to set up his appointment. However the patient did not do so for several weeks. He was contacted again and appointment rescheduled. PET scan from 03/09/20 had shown at least 2 nodules with suspicious uptake presacral area just to the right of midline. 2 small nodules were noted in the right lung with a larger about 1 cm hypermetabolic and suspicious . The left lung nodule actually showed fairly low level uptake which is felt to be nonspecific. Mediastinal nodes, nonenlarged, continue to show low level uptake unchanged from his initial PET scan from 04/27, suggestive of inflammatory change. Patient had a biopsy of one of the presacral masses on 05/24/20, revealing colorectal adenocarcinoma. he was started on FOLFIRI on 06/25/20 and is status post 12 cycles, completing those on 11/25/20. repeat CT scans on 07/05/20 showed further progression in bilateral lung nodules, with the largest in the left base at 1.7 cm versus 1.4 cm. Presacral soft tissue measured 3.2 x 4.8 cm. NGS testing revealed MSI/PD1 negativity, and K-jorden wild-type. Vectibix was added with C 3. patient was seen by radiation oncology to assess for possible consolidative radiation. He had a PET scan ordered by them, done on 12/07/20, which actually showed no areas of suspicious uptake the patient was evaluated by radiation oncology subsequently, and was not felt to have any targeted for consolidative radiation given negative PET scan. he was then recommended to start maintenance Xeloda 1 week on 1 week off, along with continuance of Vectibix. This was delayed to the first week of 03/29 at the patient's request. 01/12/21-Pt stopped taking KCL 2 days ago because his stomach was irritated- started supplement early Dec for K+ of 3.1, will check level today to see if he needs to continue. He is here for xeloda and vectibix edu. He has had vectibix before-very nervous about the rash. Reviewed that xeloda is the same as pump med, he was very worried about the dose. He is just starting to feel better this last week after having a very rough last 6 weeks of treatment. 03/15/21-Pt here today for acute visit, c/o of pain, starts in middle of lower back, radiates down the legs, "muscles wouldn't realx", had trouble sleeping because he could not get comfortable. He knows it is coming from his walking-he "waddles" 2/2 neuropathy. His finger neuropathy is better then previously, has good and bad days. Nails on thumbs are split, dark nail beds, nails are curving. He feels pretty good otherwise. was of Xeloda was decreased to 2000 mg twice a day one week on 1 week off after his visit in 04/30 because of increasing skin toxicity, diarrhea and fatigue. PET scan in 11/28 showed progression in presacral area, pelvic and upper abdominal nodes, as well as possibly in the mediastinum and adrenal his regimen was therefore stopped, and the plan was to switch him to FOLFIRI + Zaltrap. However the patient was admitted to [facility] in early 12/29 for small bowel obstruction. He had to have surgery on 12/11/21 and had a prolonged hospitalization due to slow recovery of bowel function, for a total of about 2 weeks. he was discharged with a Issa catheter, that was removed about 10 days after discharge. During his hospitalization he also required TPN temporarily. the patient was then started on chemotherapy post discharge, when seen on 01/11/22. Is status post 3 cycles 02/02/22-Pt here for f/u S/P 1cycle of FOLFIRI and zaltrap, very tired for about 2 days after Tx, diarrhea, took lomotil and that helped, nothing worked for SE yesterday. He certaily does not feel better since starting Tx, he gained 20lbs off treatment, has lost 10 of it. He describes intermittent days of feeling "off", he feels treatment is harder this time. No F, chills, N,V. He is frustrated that he is very tired in the moring, it is affecting his ability to work, as others rely on him getting his job done so they can do theirs. Neuropathy in feet was pretty notable just after chemo, cold sensitivity in mouth and hands not as bad a feet, all is less intense this week. Urinating is better-see above for details of that hospitalization, and pain in tailbone is better. as above. The patient did better with his energy and appetite with the use of corticosteroids. He denied any f/c/n/v currently. he had significant drop in energy cycle 1, but 20 has been overall much better with subsequent cycles. He has intermittent diarrhea. He reports a good appetite. Ostomy is functioning well. He is not a candidate for reversal. He has mild numbness and cold sensitivity, mostly in his hands. His ROS is otherwise as per HPI and negative out of 10. Last seen on 02/23/22. Last chemo with FOLFIRI/Zaltrap given on 03/07/22. Past Medical History History of Any Multi-Drug Resistant Organisms: None Reported Past Psychological History: Anxiety Smoking Status: Never smoker Past Alcohol Use History: None Reported Past Drug Use History: None Reported Medications and Allergies Home Medications Medication Instructions Recorded Confirmed Type Diphenoxylate HCl/Atropine 1 tab PO BID PRN 03/11/22 03/11/22 History [Lomotil 2.5-0.025 mg Tablet] HYDROcodone/APAP 5-325MG [[place] 1 tab PO Q4HR PRN 03/11/22 03/11/22 History 5-325] Lidocaine Viscous 2% [Xylocaine 1 dose MUCOUS MEM BID PRN 03/11/22 03/11/22 History Viscous] Omeprazole [PriLOSEC] 40 mg PO DAILY 03/11/22 03/11/22 History Allergies Allergy/AdvReac Type Severity Reaction Status Date / Time No Known Allergies Allergy Verified 03/11/22 16:17 Physical Exam Vitals: Vital Signs Temp Pulse Pulse Resp BP Pulse Ox 03/11/22 19:18 147 H 03/11/22 18:31 147 H 18 125/95 98 03/11/22 18:00 147 H 18 138/109 99 03/11/22 17:00 143 H 18 99 03/11/22 14:48 97.6 F 75 18 128/103 96 Intake and Output 03/11/22 03/11/22 03/11/22 06:59 14:59 22:59 Other: Weight 86.183 kg Gen.: No acute distress. Thin. HEENT: Mucosa moist. Lungs: No respiratory distress. Heart: Regular rate. Abdomen: Soft. Neuro: Alert and oriented 3. Skin: No jaundice. Psych: Appropriate affect. Results CBC & Chem 7: 03/11/22 22:37 03/12/22 02:35 Labs: Abnormal Lab Results - Last 24 Hours (Table) 03/11/22 03/11/22 03/11/22 Range/Units 16:00 16:00 19:24 Plasma Lactic Acid Stoney 10.3 H* 9.2 H* (0.7-2.0) mmol/L Troponin I 0.435 H* (0.000-0.034) ng/mL Chest x-ray: report reviewed Assessment and Plan Assessment: 1. NSTEMI 2. New onset heart failure 3. Lactic acidosis 4. Colon cancer on chemotherapy 5. Recent SBO s/p surgery and ostomy placement in 12/2021. Plan: Mr. Rivero is a very pleasant 62 yo male with long standing history of metastatic colorectal cancer, on palliative chemotherapy with FOLFIRI/Zaltrap under Dr. Flores who is here for slowly worsening SOB/DOWNS. Found to have new CHF and NSTEMI. No cardiac history. Also with persistent lactic acidosis of unclear etiology. I am concerned that this could be toxicity from chemotherapy. Await cardiology evaluation. 5FU as well as Zaltrap can cause cardiac toxicity. He also had SBO requiring surgical intervention in 12/2021. ?bowel ischemia contributing to his underlying lactic acidosis? however pt denies abdominal complaints other than slight loose stools on the day of presentation per ostomy. Continue aggressive supportive care. Recommend obtaining Abd doppler to rule out thromboembolic event or bowel ischemia. Hold chemotherapy until pt improves. Will continue to follow pt with you. Discussed extensively with nursing staff, pt and family at bedside, and other treating teams. All other questions were answered.
--- NOTE | 2022-03-12 16:09 | CA ---
Transthoracic Echo Report Name: Danilo Rivero Age: 62 Gender: M : 1960 Exam Date: 03/12/2022 10:09 Exam Location: [facility] Ht (in): 72 Wt (lb): 187 Ordering Physician: Ludin Pham Attending/Referring Phys: [id number], [facility] Radiologist Daiana Mike RDCS Procedure CPT: Indications: chf Cardiac Hx: Technical Quality: Contrast 1: Lumason Total Dose (mL): 3 Contrast 2: Total Dose (mL): MEASUREMENTS (Male / Female) Normal Values 2D ECHO LV Diastolic Diameter PLAX 7.3 cm 4.2 - 5.9 / 3.9 - 5.3 cm LV Systolic Diameter PLAX 6.6 cm IVS Diastolic Thickness 0.8 cm 0.6 - 1.0 / 0.6 - 0.9 cm LVPW Diastolic Thickness 1.0 cm 0.6 - 1.0 / 0.6 - 0.9 cm LV Relative Wall Thickness 0.2 RV Internal Dim ED PLAX 3.0 cm LA Systolic Diameter LX 3.2 cm 3.0 - 4.0 / 2.7 - 3.8 cm M-MODE Aortic Root Diameter MM 3.3 cm LA Systolic Diameter MM 3.3 cm LA Ao Ratio MM 1.0 MV E Point Septal Separation 2.0 cm AV Cusp Separation MM 2.3 cm DOPPLER MV E' Velocity 2.6 cm/s TR Peak Velocity 210.4 cm/s TR Peak Gradient 17.7 mmHg Right Ventricular Systolic Press 22.0 mmHg FINDINGS Left Ventricle Severely increased left ventricular diastolic diameter. Global left ventricular hypokinesis. Left ventricular ejection fraction is estimated at 10 -15 %. Lumason use to r/o clot in apex. Right Ventricle Normal right ventricular size and function. Right ventricular systolic pressure within normal limits. Right Atrium Normal right atrial size. Left Atrium Normal left atrial size. Mitral Valve Mitral valve thickened. Mild mitral regurgitation. Aortic Valve Trileaflet aortic valve. Tricuspid Valve Structurally normal tricuspid valve. Mild tricuspid regurgitation. Pulmonic Valve Structurally normal pulmonic valve. Pericardium Normal pericardium. Aorta Normal size aortic root and proximal ascending aorta. CONCLUSIONS Diffuse global hypokinesis dilated left ventricle with severe LV systolic dysfunction Previewed by: Dr. Pradeep Vick MD (Electronically Signed) Final Date: 12 March 2022 16:09
[2022-03-12] MEDS: HEPARIN SODIUM,PORCINE/PF 5,000 UNIT/0.5 ML SYRINGE SQ SCH (18:14)
--- NOTE | 2022-03-12 22:29 | P.CONS ---
History of Present Illness - Reason for Consult Consult date: 03/12/22 - History of Present Illness Patient is a 62-year-old male with a past medical history significant for stage IV colon cancer in this patient who is status post sigmoid resection and colostomy patient is currently on chemotherapy last chemo was last week on Sunday patient apparently has not been feeling well since his chemotherapy and has been on the downside and also developing increasing shortness of breath over the patient presented to [facility] patient was evaluated at that facility he did have a CT angiogram of the chest that was negative for PE with evidence of cardiomegaly and congestive heart failure patient did have elevated lactic acid patient subsequently was transferred to [facility] for further evaluation on presentation to this facility patient did have a fever last night of 101.6 F and a fever of 101.7 F this morning the patient is afebrile since then patient has been tachycardic as well as tachypneic and did have mild hypoxia requiring supplemental oxygen in the form of 3 L nasal cannula patient did have a normal white count creatinine has been normal lactic is 11.2 her liver enzymes are elevated urine has been negative blood cultures obtained which are currently pending patient is currently being treated with the vancomycin and Zosyn infectious disease was consulted for further management of antibiotic therapy patient did have a chest x-ray no obvious heart failure cardiomegaly with increased interstitial markings Past Medical History Past Medical History: Cancer, Heart Failure, Osteoarthritis (OA), Sleep Apnea/CPAP/BIPAP Additional Past Medical History / Comment(s): Rectal Cancer History of Any Multi-Drug Resistant Organisms: None Reported Past Surgical History: Bowel Resection Past Psychological History: Anxiety Smoking Status: Never smoker Past Alcohol Use History: None Reported Past Drug Use History: None Reported Medications and Allergies Home Medications Medication Instructions Recorded Confirmed Type Diphenoxylate HCl/Atropine 1 tab PO BID PRN 03/11/22 03/11/22 History [Lomotil 2.5-0.025 mg Tablet] HYDROcodone/APAP 5-325MG [[place] 1 tab PO Q4HR PRN 03/11/22 03/11/22 History 5-325] Lidocaine Viscous 2% [Xylocaine 1 dose MUCOUS MEM BID PRN 03/11/22 03/11/22 H istory Viscous] Omeprazole [PriLOSEC] 40 mg PO DAILY 03/11/22 03/11/22 History Allergies Allergy/AdvReac Type Severity Reaction Status Date / Time No Known Allergies Allergy Verified 03/11/22 16:17 Physical Exam Vitals: Vital Signs Temp Pulse Pulse Resp BP BP Pulse Ox 03/12/22 09:07 98 03/12/22 09:00 124 H 33 H 97/84 98 03/12/22 08:00 98.0 F 131 H 25 H 126/90 94 L 03/12/22 07:00 98.0 F 32 H 120/79 99 03/12/22 06:00 101.7 F H 130 H 47 H 106/85 98 03/12/22 05:00 99.4 F 129 H 0 L 110/89 99 03/12/22 04:00 99.4 F 134 H 31 H 110/89 98 03/12/22 03:00 100.4 F H 126 H 31 H 119/84 95 03/12/22 02:00 101.5 F H 128 H 36 H 126/87 95 03/12/22 01:33 125 H 32 H 112/84 91 L 03/12/22 01:20 130 H 03/12/22 00:11 101.5 F H 138 H 24 111/82 95 03/11/22 21:06 101.6 F H 140 H 22 120/88 95 03/11/22 20:00 141 H 22 128/100 98 03/11/22 19:18 147 H 03/11/22 19:00 147 H 24 137/99 95 03/11/22 18:31 147 H 18 125/95 98 03/11/22 18:00 147 H 18 138/109 99 03/11/22 17:00 143 H 18 99 03/11/22 14:48 97.6 F 75 18 128/103 96 Intake and Output 03/11/22 03/12/22 03/12/22 22:59 06:59 14:59 Intake Total 289.667 576 Output Total 1450 600 Balance -1160.333 -24 Intake: IV 200 576 Cefepime 2 gm In Sodium 100 Chloride 0.9% 100 ml @ 25 mls/hr IVPB Q8HR [facility] Rx# :[id number] Piperacillin-Tazobactam 3 75 .375 gm In Sodium Chloride 0.9% 100 ml @ 25 mls/hr IVPB Q8H [facility] Rx#: [id number] Vancomycin 1,500 mg In 501 Sodium Chloride 0.9% 500 ml 500 ml @ 167 mls/hr IVPB Q12H [facility] Rx#: [id number] metroNIDAZOLE-NS PMX 500 100 mg In Saline 1 100ml.bag @ 100 mls/hr IVPB Q12H [facility] Rx#:[id number] Intake, IV Titration 89.667 Amount Heparin Sod,Pork in 0.45% 89.667 NaCl 25,000 unit In 0.45 % NaCl 1 250ml.bag @ 11. 603 UNITS/KG/HR 10 mls/hr IV .Q24H [facility] Rx#: [id number] Output: Urine 1450 600 Other: Voiding Method External Catheter External Catheter # Voids 1 Weight 85 kg Results CBC & Chem 7: 03/11/22 22:37 03/12/22 02:35 Labs: Abnormal Lab Results - Last 24 Hours (Table) 03/11/22 03/11/22 03/11/22 Range/Units 16:00 16:00 19:24 RBC (4.30-5.90) m/uL Hgb (13.0-17.5) gm/dL Hct (39.0-53.0) % MCHC (31.0-37.0) g/dL RDW (11.5-15.5) % Lymphocytes # (1.0-4.8) k/uL APTT (22.0-30.0) sec Carbon Dioxide (22-30) mmol/L BUN (9-20) mg/dL Creatinine (0.66-1.25) mg/dL Glucose (74-99) mg/dL Plasma Lactic Acid Stoney 10.3 H* (0.7-2.0) mmol/L Calcium (8.4-10.2) mg/dL Total Bilirubin (0.2-1.3) mg/dL AST (17-59) U/L ALT (4-49) U/L Troponin I 0.435 H* 0.547 H* (0.000-0.034) ng/mL Total Protein (6.3-8.2) g/dL Albumin (3.5-5.0) g/dL 03/11/22 03/11/22 03/11/22 Range/Units 19:24 22:37 22:37 RBC 4.02 L (4.30-5.90) m/uL Hgb 11.9 L (13.0-17.5) gm/dL Hct 38.8 L (39.0-53.0) % MCHC 30.8 L (31.0-37.0) g/dL RDW 18.2 H (11.5-15.5) % Lymphocytes # 0.8 L (1.0-4.8) k/uL APTT (22.0-30.0) sec Carbon Dioxide (22-30) mmol/L BUN (9-20) mg/dL Creatinine (0.66-1.25) mg/dL Glucose (74-99) mg/dL Plasma Lactic Acid Stoney 9.2 H* (0.7-2.0) mmol/L Calcium (8.4-10.2) mg/dL Total Bilirubin (0.2-1.3) mg/dL AST (17-59) U/L ALT (4-49) U/L Troponin I 0.530 H* (0.000-0.034) ng/mL Total Protein (6.3-8.2) g/dL Albumin (3.5-5.0) g/dL 03/11/22 03/11/22 03/11/22 Range/Units 22:37 22:37 22:37 RBC (4.30-5.90) m/uL Hgb (13.0-17.5) gm/dL Hct (39.0-53.0) % MCHC (31.0-37.0) g/dL RDW (11.5-15.5) % Lymphocytes # (1.0-4.8) k/uL APTT 41.9 H (22.0-30.0) sec Carbon Dioxide 18 L (22-30) mmol/L BUN 36 H (9-20) mg/dL Creatinine (0.66-1.25) mg/dL Glucose 106 H (74-99) mg/dL Plasma Lactic Acid Stoney 11.2 H* (0.7-2.0) mmol/L Calcium 8.3 L (8.4-10.2) mg/dL Total Bilirubin 2.5 H (0.2-1.3) mg/dL AST 189 H (17-59) U/L ALT 133 H (4-49) U/L Troponin I (0.000-0.034) ng/mL Total Protein 5.9 L (6.3-8.2) g/dL Albumin 3.3 L (3.5-5.0) g/dL 03/12/22 03/12/22 Range/Units 02:04 02:35 RBC (4.30-5.90) m/uL Hgb (13.0-17.5) gm/dL Hct (39.0-53.0) % MCHC (31.0-37.0) g/dL RDW (11.5-15.5) % Lymphocytes # (1.0-4.8) k/uL APTT 39.3 H (22.0-30.0) sec Carbon Dioxide (22-30) mmol/L BUN (9-20) mg/dL Creatinine 1.26 H (0.66-1.25) mg/dL Glucose (74-99) mg/dL Plasma Lactic Acid Stoney (0.7-2.0) mmol/L Calcium (8.4-10.2) mg/dL Total Bilirubin (0.2-1.3) mg/dL AST (17-59) U/L ALT (4-49) U/L Troponin I (0.000-0.034) ng/mL Total Protein (6.3-8.2) g/dL Albumin (3.5-5.0) g/dL Assessment and Plan Plan: 1patient was in the hospital with sepsis and respiratory fever tachycardia tach ypnea in this patient with stage IV colon cancer on chemotherapy patient did have elevated liver enzymes however no significant tenderness to right upper quadrant area with a question of possibly related to the hepatic metastasis versus gallbladder disease and will need to call for the enteric gram-negative but likely pathogen less likely gram-positive. 2 We will obtain ultrasound of the liver and gallbladder area 3-patient to continue with Zosyn however discontinue vancomycin to decrease risk of nephrotoxicity We will follow on clinical condition and cultures to further adjust medication if needed Thank you for this consultation will follow this patient along with you Time with Patient: Greater than 30
[2022-03-13] MEDS: HEPARIN SODIUM,PORCINE/PF 5,000 UNIT/0.5 ML SYRINGE SQ SCH (00:23)
[2022-03-13] MEDS: PIPERACILLIN-TAZOBACTAM 3.375 GM in SODIUM CHLORIDE 0.9% 100 ML IVPB SCH ×3 (00:25→16:35)
[2022-03-13 07:49] LABS: Albumin 2.6 g/dL (3.5-5.0); Calcium 7.7 mg/dL (8.4-10.2); Potassium 3.9 mmol/L (3.5-5.1); Total Bilirubin 2.5 mg/dL (0.2-1.3)
[2022-03-13 08:04] LABS: Anisocytosis Slight; Basophils % (A) 0 %; Eosinophils % (A) 0 %; HCT 37.9 % (39.0-53.0); HGB 11.9 gm/dL (13.0-17.5); Hypochromasia Moderate; Lymphocytes # (A) 0.7 k/uL (1.0-4.8); Lymphocytes % (A) 30 %; MCH 29.1 pg (25.0-35.0); MCHC 31.4 g/dL (31.0-37.0); MCV 92.6 fL (80.0-100.0); Monocytes % (A) 1 %; Neutrophils # (A) 1.5 k/uL (1.3-7.7); Neutrophils % (A) 68 %; RDW 18.2 % (11.5-15.5); WBC 2.3 k/uL (3.8-10.6)
--- NOTE | 2022-03-13 08:09 | P.PN ---
Subjective Progress Note Date: 03/13/22 Principal diagnosis: Heart failure secondary to heart failure with reduced ejection fraction The patient is a pleasant 62-year-old patient with a past medical history significant for colorectal cancer status post chemotherapy as well as severe LV dysfunction was admitted to the hospital with heart failure. March 132021 The patient was seen this morning. He stated he is feeling somewhat better in terms of shortness of breath. He is a slightly confused. He reports no pain in the chest. He remains hemodynamically stable beside mild sinus tachycardia. I'm going to increase the dose of beta jd from 25 mg by mouth twice a day to 50 mg by mouth twice a day with metoprolol tartrate. Consider adding JOEL inhibitor and Aldactone down the line 16 creatinine improved. The echo revealed severe LV dysfunction with EF around 15%. Objective - Vital Signs Vital signs: Vital Signs Temp 98.4 F 03/13/22 06:00 Pulse 117 H 03/13/22 07:00 Resp 28 H 03/13/22 07:00 BP 115/86 03/13/22 07:00 Pulse Ox 92 L 03/13/22 07:00 FiO2 Intake & Output 03/12/22 03/13/22 03/13/22 18:59 06:59 18:59 Intake Total 736 1735 10 Output Total 900 665 50 Balance -164 1070 -40 Weight 81.1 kg Intake: IV 736 795 10 0.9 @ KVO 110 120 10 Piperacillin-Tazobactam 3 125 175 .375 gm In Sodium Chloride 0.9% 100 ml @ 25 mls/hr IVPB Q8H [facility] Rx#: [id number] Vancomycin 1,500 mg In 501 500 Sodium Chloride 0.9% 500 ml 500 ml @ 167 mls/hr IVPB Q12H [facility] Rx#: [id number] Oral 940 Output: Urine 900 665 50 Other: Voiding Method External Catheter External Catheter # Voids 1 - Constitutional General appearance: Present: no acute distress - Respiratory Respiratory: bilateral: diminished - Cardiovascular Heart sounds: normal: S1, S2 Abnormal Heart Sounds: Present: systolic murmur - Labs CBC & Chem 7: 03/11/22 22:37 03/13/22 07:03 Labs: Abnormal Lab Results - Last 24 Hours (Table) 03/12/22 03/12/22 03/13/22 Range/Units 11:48 13:30 07:03 APTT 92.8 H (22.0-30.0) sec Chloride 111 H (98-107) mmol/L Carbon Dioxide 19 L (22-30) mmol/L BUN 54 H (9-20) mg/dL Creatinine 1.53 H (0.66-1.25) mg/dL Calcium 7.7 L (8.4-10.2) mg/dL Total Bilirubin 2.5 H (0.2-1.3) mg/dL AST 682 H (17-59) U/L ALT 492 H (4-49) U/L Total Protein 5.0 L (6.3-8.2) g/dL Albumin 2.6 L (3.5-5.0) g/dL Urine Protein 1+ H (Negative) Urine Blood Trace H (Negative) Urine Bacteria Rare H (None) /hpf Hyaline Casts 3 H (0-2) /lpf Urine Mucus Rare H (None) /hpf Microbiology - Last 24 Hours (Table) 03/12/22 02:04 Blood Culture - Preliminary Blood No Growth after 24 hours 03/11/22 17:11 Blood Culture - Preliminary Blood No Growth after 24 hours 03/11/22 17:09 Blood Culture - Preliminary Blood No Growth after 24 hours Assessment and Plan Assessment: Assessment #1 history of colorectal cancer #2 severe LV dysfunction and likely to be nonischemic #3 heart failure with reduced ejection fraction exacerbation #4 sinus tachycardia #5 multiple comorbid conditions Plan Continue the current dose of IV Lasix Continue monitor the kidney function and electrolytes Increase the dose of beta jd Follow-up with the patient
--- NOTE | 2022-03-13 08:31 | US ---
EXAMINATION TYPE: US abdomen complete DATE OF EXAM: 03/13/2022 COMPARISON: NONE CLINICAL HISTORY: elevated LFT. Elevated LFT's TECHNIQUE: Multiple sonographic images of the abdomen are obtained. FINDINGS: EXAM MEASUREMENTS: Liver Length: 12.8 cm Gallbladder Wall: 0.2 cm CBD: 0.5 cm Spleen: 9.6 cm Right Kidney: 11.5 x 5.7 x 5.9 cm Left Kidney: 11.4 x 6.3 x 4.5 cm SERVICE MECHANIC NOTES: Unresponsive ICU pt, difficult exam Pancreas: wnl, tail obscured by overlying bowel gas Liver: Visualized portions appeared wnl Gallbladder: Distended with multiple gallstones Evidence for sonographic Stokes's sign: No CBD: wnl Spleen: wnl Right Kidney: Mild hydro Left Kidney: Mild hydro Upper IVC: wnl Abd Aorta: wnl The liver is homogenous. The intrahepatic portion of the IVC and proximal abdominal aorta are within normal limits. Common bile duct is unremarkable. The visualized portions of the pancreas are homog enous. The spleen is unremarkable. Kidneys are symmetric and free of hydronephrosis. No renal lesi ons are seen. IMPRESSION: Hydropic gallbladder with cholelithiasis.
[2022-03-13 09:33] LABS: Large Platelets Present; Platelet Count 78 k/uL (150-450)
[2022-03-13] MEDS: FUROSEMIDE 10 MG/ML 2 ML VIAL IV SCH (10:33)
[2022-03-13] MEDS: METOPROLOL TARTRATE 50 MG TAB PO SCH ×2 (10:34→21:07)
--- NOTE | 2022-03-13 11:44 | P.PN ---
Subjective Progress Note Date: 03/13/22 Principal diagnosis: Sepsis. This is a 62-year-old white male with history of stage IV colon cancer. Patient was diagnosed a few years back, and he received recently chemotherapy this was last Sunday. Since then the patient has been complaining of shortness of breath, patient presented to [facility] emergency room, and he was complaining of shortness of breath, workup revealed evidence of cardiomegaly, congestive heart failure, and he had a CT angiogram of the chest showed no evidence of pulmonary embolism. Patient was transferred to [facility], and he was found to have significantly elevated BNP, his troponin was also elevated, and he had significantly elevated lactic acid initially was 6.3 and later showed some rise in his lactic acid. Patient has been complaining of mostly shortness of breath, no cough, no wheezing, no nausea no vomiting no abdominal pain. Patient was given small boluses of fluids because of his congestive heart failure and elevated lactic acid, however after he arrived to the floor patient developed full-blown congestive heart failure symptoms, had to be given Lasix, and had to be transferred to the ICU. 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 Cardiology consultation is pending. Patient is not a great historian. He seems to be generally weak, frail, and unable to volunteer much history Progress note dated 03/13/2022. This is a 62-year-old male who was admitted to the hospital on March 11, with an non-ST segment elevation myocardial infarction. He came to the intensive care unit, yesterday, with pulmonary edema, and sepsis. Currently, he's on 3 L of oxygen, and getting saline at 10 mL an hour. He is also getting Zosyn, and has a history of stage IV colon cancer. White count 2.3, hemoglobin 11.9, hematocrit 37.9, and platelet count 78,000. Sodium 143, potassium 3.9, chlorides 111, anion gap 13, BUN 54, creatinine 1.53. AST is 682. ALT is 492. Pro-calcitonin level is 32.2. Abdominal ultrasound shows hydropic gallbladder with cholelithiasis. The patient is not tender in the right upper quadrant. Objective - Vital Signs Vital signs: Vital Signs Temp 97.3 F L 03/13/22 08:00 Pulse 105 H 03/13/22 11:00 Resp 32 H 03/13/22 11:00 BP 106/81 03/13/22 11:00 Pulse Ox 94 L 03/13/22 11:00 FiO2 Intake & Output 03/12/22 03/13/22 03/13/22 18:59 06:59 18:59 Intake Total 736 1735 50 Output Total 900 665 600 Balance -164 1070 -550 Weight 81.1 kg Intake: IV 736 795 50 0.9 @ KVO 110 120 50 Piperacillin-Tazobactam 3 125 175 .375 gm In Sodium Chloride 0.9% 100 ml @ 25 mls/hr IVPB Q8H VINAY Rx#: [id number] Vancomycin 1,500 mg In 501 500 Sodium Chloride 0.9% 500 ml 500 ml @ 167 mls/hr IVPB Q12H VINAY Rx#: [id number] Oral 940 Output: Urine 900 665 600 Other: Voiding Method External Catheter External Catheter External Catheter # Voids 1 - Exam No acute distress, oriented 3. No respiratory distress. Currently on 3 L of oxygen. HEENT examination is grossly unremarkable. Neck supple. Full range of motion. No adenopathy thyromegaly or neck vein distention. Cardiovascular examination reveals regular rhythm rate. S1-S2 normal. No S3 or S4. No discernible murmur noted. Heart rate 100 bpm. Lungs reveal mostly clear breath sounds. Minimal scattered rhonchi. No wheezes or crackles. Saturations are 96% on 3 L. Abdomen soft bowel sounds are heard. No masses or tenderness. Extremities are intact. No cyanosis clubbing or edema. Skin is without rash or lesion. Neurologic examination is brief but nonfocal. - Labs CBC & Chem 7: 03/13/22 07:03 03/13/22 07:03 Labs: Abnormal Lab Results - Last 24 Hours (Table) 03/12/22 03/12/22 03/13/22 Range/Units 11:48 13:30 07:03 WBC (3.8-10.6) k/uL RBC (4.30-5.90) m/uL Hgb (13.0-17.5) gm/dL Hct (39.0-53.0) % RDW (11.5-15.5) % Plt Count (150-450) k/uL Lymphocytes # (1.0-4.8) k/uL APTT 92.8 H (22.0-30.0) sec Chloride (98-107) mmol/L Carbon Dioxide (22-30) mmol/L BUN (9-20) mg/dL Creatinine (0.66-1.25) mg/dL Calcium (8.4-10.2) mg/dL Total Bilirubin (0.2-1.3) mg/dL AST (17-59) U/L ALT (4-49) U/L Total Protein (6.3-8.2) g/dL Albumin (3.5-5.0) g/dL Procalcitonin 32.20 H (0.02-0.09) ng/mL Urine Protein 1+ H (Negative) Urine Blood Trace H (Negative) Urine Bacteria Rare H (None) /hpf Hyaline Casts 3 H (0-2) /lpf Urine Mucus Rare H (None) /hpf 03/13/22 03/13/22 Range/Units 07:03 07:03 WBC 2.3 L (3.8-10.6) k/uL RBC 4.10 L (4.30-5.90) m/uL Hgb 11.9 L (13.0-17.5) gm/dL Hct 37.9 L (39.0-53.0) % RDW 18.2 H (11.5-15.5) % Plt Count 78 L D (150-450) k/uL Lymphocytes # 0.7 L (1.0-4.8) k/uL APTT (22.0-30.0) sec Chloride 111 H (98-107) mmol/L Carbon Dioxide 19 L (22-30) mmol/L BUN 54 H (9-20) mg/dL Creatinine 1.53 H (0.66-1.25) mg/dL Calcium 7.7 L (8.4-10.2) mg/dL Total Bilirubin 2.5 H (0.2-1.3) mg/dL AST 682 H (17-59) U/L ALT 492 H (4-49) U/L Total Protein 5.0 L (6.3-8.2) g/dL Albumin 2.6 L (3.5-5.0) g/dL Procalcitonin (0.02-0.09) ng/mL Urine Protein (Negative) Urine Blood (Negative) Urine Bacteria (None) /hpf Hyaline Casts (0-2) /lpf Urine Mucus (None) /hpf Microbiology - Last 24 Hours (Table) 03/12/22 02:04 Blood Culture - Preliminary Blood No Growth after 24 hours 03/11/22 17:11 Blood Culture - Preliminary Blood No Growth after 24 hours 03/11/22 17:09 Blood Culture - Preliminary Blood No Growth after 24 hours Assessment and Plan Assessment: Acute systolic CHF. 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 Acute pulmonary edema. Non-ST segment elevation myocardial infarction. Stage IV colon cancer, history of colostomy. Possible underlying sepsis, source unknown. Pancytopenia, probably related to chemotherapy. Mildly anion gap metabolic acidosis. Plan: Plan dated 03/21/2022. The patient is on Zosyn for suspected sepsis. Source is not clear. Blood and urine samples have been sent. The patient's pro-calcitonin level was quite high. We will continue to follow make recommendations along the way. Prognosis is guarded. The patient has a mild pancytopenia, probably chemotherapy induced. Time with Patient: Less than 30
[2022-03-13 12:38] LABS: ABG Base Excess 0.3 mmol/L; ABG HCO3 23 mmol/L (21-25); ABG Oxygen Saturation 98.2 % (94-97); ABG PCO2 27 mmHg (35-45); ABG PH 7.54 (7.35-7.45); ABG PO2 202 mmHg (83-108); ABG TCO2 24 mmol/L (19-24); Allen Test Performed? Yes
[2022-03-13 12:55] LABS: Anisocytosis Slight; HCT 39.6 % (39.0-53.0); HGB 12.5 gm/dL (13.0-17.5); Hypochromasia Marked; MCH 29.7 pg (25.0-35.0); MCHC 31.5 g/dL (31.0-37.0); MCV 94.1 fL (80.0-100.0); Macrocytosis Slight; Mean Platelet Volume 12.1; RBC 4.21 m/uL (4.30-5.90); RDW 18.3 % (11.5-15.5); WBC 2.3 k/uL (3.8-10.6)
[2022-03-13 12:59] LABS: Platelet Count 76 k/uL (150-450)
[2022-03-13 14:40] LABS: Band Neutrophils % 1 %; Eosinophils # (M) 0.02 k/uL (0-0.7); Lymphocytes # (M) 0.53 k/uL (1.0-4.8); Neutrophils % (M) 75 %; Nucleated Red Blood Cells 0 /100 WBC (0-0); Total Cells Counted 100
--- NOTE | 2022-03-13 14:41 | P.PN ---
Progress Note - Text Progress Note Date: 03/13/22 Chief Complaint: Short of breath This is a pleasant 62-year-old patient, follows with Dr. Candida Oshea. Patient follows with oncologist Dr. Flores. Patient has a diagnosis of colorectal cancer diagnosed about 4/2 years ago. Recently patient had bowel obstruction surgery with Dr. Lott. And has a resulting colostomy. Currently getting chemotherapy. Last chemotherapy was 4 days ago. Patient has become short of breath. Tired. Decreased appetite. Patient initially presented to outside hospital read his UA was negative, lactic acid was 5 troponin was 0.359 tachycardic negative for COVID RSV influenza. ProBNP was 28,300. Given IV fluids. No fever no chills. Tired rundown. Patient is accompanied by the at the ER.-Where I saw the patient. Patient has no previous cardiac history. No urinary symptoms. Stool output has not changed. Patient bit of mid suspected chemotherapy-induced myocarditis, causing troponin leak sinus tachycardia. Started on IV fluids being moved to ICU 03/12/2022: ICU: Patient spiked a fever last night. Patient empirically on vancomycin. Zosyn. Started on IV Lasix. IV fluids held. Lopressor. Poor appetite. Tired. Discussed with at the bedside. 03/13/2022: ICU. Septic. Patient on IV Zosyn and vancomycin. Vancomycin being discontinued because of worsening renal function. EF is come back to be 15%. Lasix reduced to 20 mg IV. Poor oral intake. Short of breath. On BiPAP 03/14/50%. Patient has been delirious. Some pancytopenia. Lopressor increased by cardiology to 50 mg twice a day. Spoke to the at the bedside. Suspected ischemic hepatitis Active Medications Al Hydroxide/Mg Hydroxide 30 ml/ Lidocaine HCl 30 ml/Diphenhydramine HCl 75 mg/Nystatin 3,000,000 unit 0 ml PO TID [facility] Furosemide (Furosemide 10 Mg/Ml 2 Ml Vial) 20 mg IV DAILY [facility] Last Admin: 03/13/22 10:33 Dose: 20 mg Piperacillin Sod/Tazobactam (Sod 3.375 gm/ Sodium Chloride) 100 mls @ 25 mls/hr IVPB Q8H [facility]INAY; Protocol Last Admin: 03/13/22 10:34 Dose: 25 mls/hr Lorazepam (Lorazepam 2 Mg/Ml Inj) 1 mg IV Q4HR PRN PRN Reason: Anxiety Metoprolol Tartrate (Metoprolol Tartrate 50 Mg Tab) 50 mg PO BID VINAY Last Admin: 03/13/22 10:34 Dose: 50 mg Nitroglycerin (Nitroglycerin Sl Tabs 0.4 Mg Tab) 0.4 mg SUBLINGUAL Q5M PRN PRN Reason: Chest Pain Past medical history to include: Colorectal cancer with resultant colostomy, osteoarthritis, questionable CHF Social history: . Does not smoke or drink alcohol. [place] Family history: Reviewed, noncontributory to presentation Physical examination: VITAL SIGNS: 97.3, 18, 36, 113 with 76, 95% on BiPAP GENERAL: laying in bed, delirious EYES: Pupils equal. Conjunctiva normal. HEENT: External appearance of nose and ears normal, oral cavity dry mucous membranes. NECK: JVD not raised; masses not palpable. HEART: First and second heart sounds are normal; no edema. LUNGS: Respiratory rate increased; decreased breath sounds ABDOMEN: Soft, nontender, liver spleen not palpable, no masses palpable colostomy bag. PSYCH: Falling occasional commands. Delirious. MUSCULOSKELETAL:No Clubbing/cyanosis;muscles-grossly intact INVESTIGATIONS, reviewed in the clinical context: Abdominal ultrasound: Unremarkable 03/13/2022: WBC 2.3 hemoglobin 12.5 platelets 78 potassium 3.9 BUN 54 creatinine 1.53 lactic acid 5.5 AST 682 ALT 492 procalcitonin 32.2 lactic acid 5.5 proBNP [id number] 03/12/2022: WBC 6.9 hemoglobin 11.9 platelets 163 potassium 4.8 BUN 36 creatinine 1.24. Lactic acid 11.2 AST 189 ALT 133 Blood work from onset hospital: UA negative, lactic acid 5, COVID 19/RSV/influenza/not detected White count 8.4 hemoglobin 13.1 platelets 296 proBNP 28,300 sodium 138 potassium 4.8 BUN 34 creatinine 1.1 AST [address] chest: Negative for PE, scattered nodular density EKG tracing personally reviewed by me-sinus tachycardia with flipped T waves Assessment and plan: - chemotherapy-induced myocarditis, manifesting as sinus tachycardia, troponin leak, resulting in shortness of breath IV fluids. Supportive care. Telemetry. Watch for arrhythmias. Cardiology consult -Acute hypoxic respiratory failure, possible early ARDS BiPAP on 50% -Acute Cardiotoxicity/cardiomyopathy secondary to chemotherapy. Nonischemic. EF 15% Follow fluid balance closely. -Pancytopenia secondary to chemotherapy Follow CBC -Ischemic hepatitis Follow blood pressure closely. -Acute metabolic encephalopathy/delirium from sepsis -Sepsis, with fever, tachycardia lactic acidosis: Slow to respond Empirically started on and IV Zosyn. UA,, blood culture, stop vancomycin because of worsening renal function -Acute kidney injury suspect ATN from cardiorenal syndrome/sepsis: Worsening Follow renal function closely -Clinical dehydration: IV fluids -Colostomy care -Troponin leak from myocarditis secondary to chemotherapy ICU. at the bedside. Vancomycin discontinued because of renal function. A small dose of Lasix. BiPAP.
[2022-03-13 14:51] LABS: Large Platelets Present
[2022-03-13] MEDS: MAG HYDROX/AL HYDROX/SIMETH 30 ML, LIDOCAINE VISCOUS 2% 30 ML, diphenhydrAMINE ELIXIR 7... PO SCH ×8 (16:35→21:07)
[2022-03-13] MEDS ORDERED: VANCOMYCIN TROUGH DUE 1 EACH MISC MISCELLANE ONE (19:00)
[2022-03-13 19:38] LABS: INR 1.7 (<1.2); Partial Thromboplastin Time 25.8 sec (22.0-30.0)
--- NOTE | 2022-03-13 20:58 | P.PN ---
Subjective Progress Note Date: 03/13/22 Principal diagnosis: fever, Hx met colon adenocarcinoma, on treatment In f/u today the pt is restless, he will fall asleep, have apnea then forcefully awaken. Once awake, he does answer questions appropriately. He had no history of sleep apnea but, his has noted apnea in the past, pt just did not have sleep study. When asked pt denied chest pain, difficulty breathing or abd pain. He reports he has had output in his ostomy. Objective - Vital Signs Vital signs: Vital Signs Temp 97.3 F L 03/13/22 08:00 Pulse 105 H 03/13/22 13:00 Resp 31 H 03/13/22 13:00 BP 108/98 03/13/22 13:00 Pulse Ox 100 03/13/22 13:00 FiO2 50 03/13/22 11:52 Intake & Output 03/12/22 03/13/22 03/13/22 18:59 06:59 18:59 Intake Total 736 1735 280 Output Total 900 665 750 Balance -164 1070 -470 Weight 81.1 kg Intake: IV 736 795 280 0.9 @ KVO 110 120 80 Piperacillin-Tazobactam 3 125 175 .375 gm In Sodium Chloride 0.9% 100 ml @ 25 mls/hr IVPB Q8H [facility]AY Rx#: [id number] Vancomycin 1,500 mg In 501 500 Sodium Chloride 0.9% 500 ml 500 ml @ 167 mls/hr IVPB Q12H [facility]AY Rx#: [id number] zosyn 200 Oral 940 Output: Urine 900 665 750 Other: Voiding Method External Catheter External Catheter External Catheter # Voids 1 - Constitutional General appearance: Present: average body habitus, cooperative, mild distress - EENT Eyes: Present: anicteric sclerae, EOMI ENT: Present: hearing grossly normal - Respiratory Details: periods of apnea during sleep observed, pt arouses quickly and hyperventilates for <1 min then falls back asleep Respiratory: bilateral: diminished - Cardiovascular Details: tachycardia, thready radial pulse Abnormal Heart Sounds: Present: systolic murmur - Peripheral edema leg Peripheral Edema: bilateral: None - Gastrointestinal General gastrointestinal: Present: normal bowel sounds, soft. Absent: absent bowel sounds, decreased bowel sounds, distended, hepatomegaly, hyperactive bowel sounds, organomegaly, rigid, scaphoid, splenomegaly, tenderness, umbilical hernia, ventral hernia - Neurologic Neurologic: Present: CNII-XII intact - Musculoskeletal Musculoskeletal: Present: generalized weakness - Psychiatric Psychiatric Comment(s): when awake he is appropriate understands what is going on Psychiatric: Present: A&O x's 3, appropriate affect, intact judgment & insight - Labs CBC & Chem 7: 03/13/22 12:42 03/13/22 07:03 Labs: Abnormal Lab Results - Last 24 Hours (Table) 03/12/22 03/13/22 03/13/22 Range/Units 13:30 07:03 07:03 WBC (3.8-10.6) k/uL RBC (4.30-5.90) m/uL Hgb (13.0-17.5) gm/dL Hct (39.0-53.0) % RDW (11.5-15.5) % Plt Count (150-450) k/uL Lymphocytes # (1.0-4.8) k/uL ABG pH (7.35-7.45) ABG pCO2 (35-45) mmHg ABG pO2 (83-108) mmHg ABG O2 Saturation (94-97) % Chloride 111 H (98-107) mmol/L Carbon Dioxide 19 L (22-30) mmol/L BUN 54 H (9-20) mg/dL Creatinine 1.53 H (0.66-1.25) mg/dL Plasma Lactic Acid Stoney (0.7-2.0) mmol/L Calcium 7.7 L (8.4-10.2) mg/dL Total Bilirubin 2.5 H (0.2-1.3) mg/dL AST 682 H (17-59) U/L ALT 492 H (4-49) U/L Total Protein 5.0 L (6.3-8.2) g/dL Albumin 2.6 L (3.5-5.0) g/dL Procalcitonin 32.20 H (0.02-0.09) ng/mL Urine Protein 1+ H (Negative) Urine Blood Trace H (Negative) Urine Bacteria Rare H (None) /hpf Hyaline Casts 3 H (0-2) /lpf Urine Mucus Rare H (None) /hpf 03/13/22 03/13/22 03/13/22 Range/Units 07:03 12:37 12:42 WBC 2.3 L (3.8-10.6) k/uL RBC 4.10 L (4.30-5.90) m/uL Hgb 11.9 L (13.0-17.5) gm/dL Hct 37.9 L (39.0-53.0) % RDW 18.2 H (11.5-15.5) % Plt Count 78 L D (150-450) k/uL Lymphocytes # 0.7 L (1.0-4.8) k/uL ABG pH 7.54 H (7.35-7.45) ABG pCO2 27 L (35-45) mmHg ABG pO2 202 H (83-108) mmHg ABG O2 Saturation 98.2 H (94-97) % Chloride (98-107) mmol/L Carbon Dioxide (22-30) mmol/L BUN (9-20) mg/dL Creatinine (0.66-1.25) mg/dL Plasma Lactic Acid Stoney 5.5 H* (0.7-2.0) mmol/L Calcium (8.4-10.2) mg/dL Total Bilirubin (0.2-1.3) mg/dL AST (17-59) U/L ALT (4-49) U/L Total Protein (6.3-8.2) g/dL Albumin (3.5-5.0) g/dL Procalcitonin (0.02-0.09) ng/mL Urine Protein (Negative) Urine Blood (Negative) Urine Bacteria (None) /hpf Hyaline Casts (0-2) /lpf Urine Mucus (None) /hpf 03/13/22 Range/Units 12:42 WBC 2.3 L (3.8-10.6) k/uL RBC 4.21 L (4.30-5.90) m/uL Hgb 12.5 L (13.0-17.5) gm/dL Hct (39.0-53.0) % RDW 18.3 H (11.5-15.5) % Plt Count (150-450) k/uL Lymphocytes # (1.0-4.8) k/uL ABG pH (7.35-7.45) ABG pCO2 (35-45) mmHg ABG pO2 (83-108) mmHg ABG O2 Saturation (94-97) % Chloride (98-107) mmol/L Carbon Dioxide (22-30) mmol/L BUN (9-20) mg/dL Creatinine (0.66-1.25) mg/dL Plasma Lactic Acid Stoney (0.7-2.0) mmol/L Calcium (8.4-10.2) mg/dL Total Bilirubin (0.2-1.3) mg/dL AST (17-59) U/L ALT (4-49) U/L Total Protein (6.3-8.2) g/dL Albumin (3.5-5.0) g/dL Procalcitonin (0.02-0.09) ng/mL Urine Protein (Negative) Urine Blood (Negative) Urine Bacteria (None) /hpf Hyaline Casts (0-2) /lpf Urine Mucus (None) /hpf Microbiology - Last 24 Hours (Table) 03/12/22 02:04 Blood Culture - Preliminary Blood No Growth after 24 hours 03/11/22 17:11 Blood Culture - Preliminary Blood No Growth after 24 hours 03/11/22 17:09 Blood Culture - Preliminary Blood No Growth after 24 hours - Imaging and Cardiology US - abdomen: report reviewed Assessment and Plan (1) Heart failure Current Visit: Yes Status: Acute Priority: High Code(s): I50.9 - HEART FAILURE, UNSPECIFIED SNOMED Code(s): 62710387 (2) Colon cancer Current Visit: Yes Status: Chronic Priority: High Code(s): C18.9 - MALIGNANT NEOPLASM OF COLON, UNSPECIFIED SNOMED Code(s): 096165672 (3) Tachycardia Current Visit: Yes Status: Acute Priority: High Code(s): R00.0 - TACHYCARDIA, UNSPECIFIED SNOMED Code(s): 3168402 (4) Apnea, sleep Current Visit: Yes Status: Acute Priority: High Code(s): G47.30 - SLEEP APNEA, UNSPECIFIED SNOMED Code(s): 98481901 Plan: Fever on admit. On abx. Cultures neg to date but pt cont to meet sepsis criteria. Discussed case with ID briefly. Nursing reports that Safety Teacher has ordered procalcitonin and lactic acid levels. Witnessed periods of apnea when pt sleeping. He awakens quickly and then experiences tachypnea. Have asked that pt be treated as though he has sleep apnea-c-pap or bipap, whichever the Safety Teacher feels is most appropriate- to maybe allow pt to get some rest. Drop in WBC and plt counts. He did have treatment 6 days ago, could be related with exacerbation 2/2 sepsis. Held asa today. Held DVT prophylaxis heparin and asked for SCDs to be placed. CBC in AM. No acute intervention for low WBC today, diff ordered for AM. If ANC <1000 can order GCSF. Plt not requiring transfusion at this time. DIC work up ordered. LVEF 15%. No Hx of cardiac condition. Looked for any previous ECHO-both in this medical record and in ofc medical record-no other results found. Pt did receive VEGF inhibitor so, that will be discontinued. Cardiology is on consult. Will follow with you
[2022-03-14] MEDS: PIPERACILLIN-TAZOBACTAM 3.375 GM in SODIUM CHLORIDE 0.9% 100 ML IVPB SCH ×3 (00:49→17:33)
--- NOTE | 2022-03-14 07:25 | P.PN ---
Subjective Progress Note Date: 03/14/22 Principal diagnosis: Heart failure secondary to heart failure with reduced ejection fraction The patient is a pleasant 62-year-old patient with a past medical history significant for colorectal cancer status post chemotherapy as well as severe LV dysfunction was admitted to the hospital with heart failure. March [id number] The patient was seen this morning. He stated he is feeling somewhat better in terms of shortness of breath. He is a slightly confused. He reports no pain in the chest. He remains hemodynamically stable beside mild sinus tachycardia. I'm going to increase the dose of beta jd from 25 mg by mouth twice a day to 50 mg by mouth twice a day with metoprolol tartrate. Consider adding JOEL inhibitor and Aldactone down the line 16 creatinine improved. The echo revealed severe LV dysfunction with EF around 15%. 03/14/2022 The patient was seen and evaluated this morning. He remains symptomatic in term of shortness of breath. He remains hypoxic required BiPAP. Otherwise he is stable from a cardiovascular standpoint of view, beside mild sinus tachycardia was resting heart rate around 100 beats per minutes. Currently he is on metoprolol which was increased yesterday. We are avoiding any JOEL inhibitor or Aldactone at this point in the light of worsening kidney function. He is on Lasix and he has been making urine. I'm going to obtain a chest x-ray this morning and also NT-proBNP. We might need to consider doing right heart cathet erization to assess his fluid status if his creatinine is getting worse. We'll follow-up with the patient. Objective - Vital Signs Vital signs: Vital Signs Temp 97.9 F 03/14/22 04:00 Pulse 103 H 03/14/22 07:00 Resp 31 H 03/14/22 07:00 BP 113/81 03/14/22 07:00 Pulse Ox 100 03/14/22 06:00 FiO2 50 03/14/22 06:00 Intake & Output 03/13/22 03/14/22 03/14/22 18:59 06:59 18:59 Intake Total 380 430 10 Output Total 1300 476 100 Balance -920 -46 -90 Weight 78.2 kg Intake: IV 380 210 10 0.9 @ KVO 180 110 10 Piperacillin-Tazobactam 3 100 .375 gm In Sodium Chloride 0.9% 100 ml @ 25 mls/hr IVPB Q8H [facility] Rx#: [id number] zosyn 200 Oral 220 Output: Urine 1300 475 100 Stool 1 Other: Voiding Method External Catheter External Catheter # Voids 1 - Constitutional General appearance: Present: no acute distress - Respiratory Respiratory: bilateral: CTA - Cardiovascular Rhythm: regular Heart sounds: normal: S1, S2 - Labs CBC & Chem 7: 03/13/22 12:42 03/13/22 07:03 Labs: Abnormal Lab Results - Last 24 Hours (Table) 03/13/22 03/13/22 03/13/22 Range/Units 07:03 07:03 07:03 WBC 2.3 L (3.8-10.6) k/uL RBC 4.10 L (4.30-5.90) m/uL Hgb 11.9 L (13.0-17.5) gm/dL Hct 37.9 L (39.0-53.0) % RDW 18.2 H (11.5-15.5) % Plt Count 78 L D (150-450) k/uL Lymphocytes # 0.7 L (1.0-4.8) k/uL Lymphocytes # (Manual) (1.0-4.8) k/uL PT (9.0-12.0) sec INR (<1.2) ABG pH (7.35-7.45) ABG pCO2 (35-45) mmHg ABG pO2 (83-108) mmHg ABG O2 Saturation (94-97) % Chloride 111 H (98-107) mmol/L Carbon Dioxide 19 L (22-30) mmol/L BUN 54 H (9-20) mg/dL Creatinine 1.53 H (0.66-1.25) mg/dL Plasma Lactic Acid Stoney (0.7-2.0) mmol/L Calcium 7.7 L (8.4-10.2) mg/dL Total Bilirubin 2.5 H (0.2-1.3) mg/dL AST 682 H (17-59) U/L ALT 492 H (4-49) U/L Total Protein 5.0 L (6.3-8.2) g/dL Albumin 2.6 L (3.5-5.0) g/dL Procalcitonin 32.20 H (0.02-0.09) ng/mL 03/13/22 03/13/22 03/13/22 Range/Units 12:37 12:42 12:42 WBC 2.3 L (3.8-10.6) k/uL RBC 4.21 L (4.30-5.90) m/uL Hgb 12.5 L (13.0-17.5) gm/dL Hct (39.0-53.0) % RDW 18.3 H (11.5-15.5) % Plt Count 76 L (150-450) k/uL Lymphocytes # (1.0-4.8) k/uL Lymphocytes # (Manual) 0.53 L (1.0-4.8) k/uL PT (9.0-12.0) sec INR (<1.2) ABG pH 7.54 H (7.35-7.45) ABG pCO2 27 L (35-45) mmHg ABG pO2 202 H (83-108) mmHg ABG O2 Saturation 98.2 H (94-97) % Chloride (98-107) mmol/L Carbon Dioxide (22-30) mmol/L BUN (9-20) mg/dL Creatinine (0.66-1.25) mg/dL Plasma Lactic Acid Stoney 5.5 H* (0.7-2.0) mmol/L Calcium (8.4-10.2) mg/dL Total Bilirubin (0.2-1.3) mg/dL AST (17-59) U/L ALT (4-49) U/L Total Protein (6.3-8.2) g/dL Albumin (3.5-5.0) g/dL Procalcitonin (0.02-0.09) ng/mL 03/13/22 03/13/22 03/13/22 Range/Units 15:51 19:01 19:01 WBC (3.8-10.6) k/uL RBC (4.30-5.90) m/uL Hgb (13.0-17.5) gm/dL Hct (39.0-53.0) % RDW (11.5-15.5) % Plt Count (150-450) k/uL Lymphocytes # (1.0-4.8) k/uL Lymphocytes # (Manual) (1.0-4.8) k/uL PT 17.0 H (9.0-12.0) sec INR 1.7 H (<1.2) ABG pH (7.35-7.45) ABG pCO2 (35-45) mmHg ABG pO2 (83-108) mmHg ABG O2 Saturation (94-97) % Chloride (98-107) mmol/L Carbon Dioxide (22-30) mmol/L BUN (9-20) mg/dL Creatinine (0.66-1.25) mg/dL Plasma Lactic Acid Stoney 4.7 H* 3.5 H* (0.7-2.0) mmol/L Calcium (8.4-10.2) mg/dL Total Bilirubin (0.2-1.3) mg/dL AST (17-59) U/L ALT (4-49) U/L Total Protein (6.3-8.2) g/dL Albumin (3.5-5.0) g/dL Procalcitonin (0.02-0.09) ng/mL Microbiology - Last 24 Hours (Table) 03/12/22 02:04 Blood Culture - Preliminary Blood No Growth after 48 hours 03/13/22 16:42 Nasal Screen MRSA/MSSA - Preliminary Nasopharyngeal Swab 03/11/22 17:09 Blood Culture - Preliminary Blood No Growth after 48 hours 03/11/22 17:11 Blood Culture - Preliminary Blood No Growth after 48 hours Assessment and Plan Assessment: Assessment #1 history of colorectal cancer #2 severe LV dysfunction and likely to be nonischemic #3 heart failure with reduced ejection fraction exacerbation #4 sinus tachycardia #5 multiple comorbid conditions Plan Continue the current dose of IV Lasix Continue monitor the kidney function and electrolytes Avoid any JOEL inhibitor or Aldactone in the light of worsening kidney function Consider right heart catheterization Obtain a chest x-ray and NT pro BNP
[2022-03-14 07:44] LABS: Anisocytosis Slight; HGB 13.8 gm/dL (13.0-17.5); Hypochromasia Marked; MCH 29.2 pg (25.0-35.0); MCHC 30.6 g/dL (31.0-37.0); MCV 95.2 fL (80.0-100.0); Macrocytosis Slight; Mean Platelet Volume 12.9; RBC 4.72 m/uL (4.30-5.90); RDW 17.7 % (11.5-15.5); WBC 1.7 k/uL (3.8-10.6)
[2022-03-14 08:01] LABS: Platelet Count 44 k/uL (150-450)
[2022-03-14 09:08] LABS: Eosinophils # (M) 0.02 k/uL (0-0.7); Lymphocytes # (M) 0.88 k/uL (1.0-4.8); Monocytes # (M) 0.09 k/uL (0-1.0); Neutrophils # (M) 0.73 k/uL (1.3-7.7); Neutrophils % (M) 43 %; Nucleated Red Blood Cells 3 /100 WBC (0-0); Total Cells Counted 200
[2022-03-14 09:09] LABS: Large Platelets Present
--- NOTE | 2022-03-14 09:09 | XR ---
EXAMINATION TYPE: XR chest 1V portable DATE OF EXAM: 03/14/2022 8:55 AM COMPARISON: Chest radiographs from 03/12/2022 TECHNIQUE: XR chest 1V portable Frontal view of the chest. CLINICAL INDICATION:Male, 62 years old with history of CHF; FINDINGS: Lungs/Pleura: There is no evidence of pleural effusion or pneumothorax. Coarsened density in the low er lung dumont with left greater than right. Pulmonary vascularity: Unremarkable. Heart/mediastinum: Cardiomediastinal silhouette is enlarged and stable. Musculoskeletal: No acute osseous pathology. Other findings: None Lines/Tubes: Stable right IJ Mediport catheter with distal tip at the mid SVC. IMPRESSION: Cardiomegaly with coarse interstitial lung markings bilaterally, left greater than right. This may re present pulmonary fibrosis.
[2022-03-14] MEDS: METOPROLOL TARTRATE 50 MG TAB PO SCH ×2 (10:16→21:03)
[2022-03-14 10:18] LABS: Albumin 2.7 g/dL (3.5-5.0); Calcium 7.8 mg/dL (8.4-10.2); Total Bilirubin 2.1 mg/dL (0.2-1.3); Total Protein 5.2 g/dL (6.3-8.2)
[2022-03-14 10:19] LABS: Potassium 3.9 mmol/L (3.5-5.1)
--- NOTE | 2022-03-14 10:22 | P.PN ---
Subjective Progress Note Date: 03/14/22 Principal diagnosis: Sepsis. This is a 62-year-old white male with history of stage IV colon cancer. Patient was diagnosed a few years back, and he received recently chemotherapy this was last Sunday. Since then the patient has been complaining of shortness of breath, patient presented to [place] emergency room, and he was complaining of shortness of breath, workup revealed evidence of cardiomegaly, congestive heart failure, and he had a CT angiogram of the chest showed no evidence of pulmonary embolism. Patient was transferred to [facility], and he was found to have significantly elevated BNP, his troponin was also elevated, and he had significantly elevated lactic acid initially was 6.3 and later showed some rise in his lactic acid. Patient has been complaining of mostly shortness of breath, no cough, no wheezing, no nausea no vomiting no abdominal pain. Patient was given small boluses of fluids because of his congestive heart failure and elevated lactic acid, however after he arrived to the floor patient developed full-blown congestive heart failure symptoms, had to be given Lasix, and had to be transferred to the ICU. 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 Cardiology consultation is pending. Patient is not a great historian. He seems to be generally weak, frail, and unable to volunteer much history Progress note dated 03/13/2022. This is a 62-year-old male who was admitted to the hospital on March 11, with an non-ST segment elevation myocardial infarction. He came to the intensive care unit, yesterday, with pulmonary edema, and sepsis. Currently, he's on 3 L of oxygen, and getting saline at 10 mL an hour. He is also getting Zosyn, and has a history of stage IV colon cancer. White count 2.3, hemoglobin 11.9, hematocrit 37.9, and platelet count 78,000. Sodium 143, potassium 3.9, chlorides 111, anion gap 13, BUN 54, creatinine 1.53. AST is 682. ALT is 492. Pro-calcitonin level is 32.2. Abdominal ultrasound shows hydropic gallbladder with cholelithiasis. The patient is not tender in the right upper quadrant. Progress note dated 03/14/2022. 62-year-old male, again seen in the intensive care unit. The patient was admitted to the hospital on March 11, with non-ST segment elevation myocardial infarction. The patient was transferred to the intensive care unit, because of pulmonary edema, and sepsis. Currently, the patient's on BiPAP, with settings of 12/6 and 40%. He is getting saline at KVO. We are going to trial him on some AIRVO. His respiratory pattern is that of Max-Wallis. Currently, the patient's on Zosyn. We will recheck a d-dimer, and N-terminal proBNP. White count 1.7, hemoglobin 13.8, hematocrit 45, and platelet count 44,000. PT 17 with an INR 1.7. Most recent N-terminal proBNP is 34,200. Urine looks pretty benign. Blood cultures are thus far negative. Objective - Vital Signs Vital signs: Vital Signs Temp 97.5 F L 03/14/22 08:00 Pulse 107 H 03/14/22 10:00 Resp 19 03/14/22 10:00 BP 116/84 03/14/22 10:00 Pulse Ox 98 03/14/22 10:00 FiO2 40 03/14/22 10:00 Intake & Output 03/13/22 03/14/22 03/14/22 18:59 06:59 18:59 Intake Total 380 430 40 Output Total 1300 476 300 Balance -920 -46 -260 Weight 78.2 kg Intake: IV 380 210 40 0.9 @ KVO 180 110 40 Piperacillin-Tazobactam 3 100 .375 gm In Sodium Chloride 0.9% 100 ml @ 25 mls/hr IVPB Q8H [facility] Rx#: [id number] zosyn 200 Oral 220 Output: Urine 1300 475 300 Stool 1 Other: Voiding Method External Catheter External Catheter # Voids 1 - Exam No acute distress, oriented 3. No respiratory distress. Currently on BiPAP, at 40%. HEENT examination is grossly unremarkable. Neck supple. Full range of motion. No adenopathy thyromegaly or neck vein distention. Cardiovascular examination reveals regular rhythm rate. S1-S2 normal. No S3 or S4. No discernible murmur noted. Heart rate 105 bpm. Lungs reveal mostly clear breath sounds. Minimal scattered rhonchi. No wheezes or crackles. Saturations are 98%, on BiPAP. Abdomen soft bowel sounds are heard. No masses or tenderness. Extremities are intact. No cyanosis clubbing or edema. Skin is without rash or lesion. Neurologic examination is brief but nonfocal. - Labs CBC & Chem 7: 03/14/22 07:15 03/13/22 07:03 Labs: Abnormal Lab Results - Last 24 Hours (Table) 03/13/22 03/13/22 03/13/22 Range/Units 07:03 12:37 12:42 WBC (3.8-10.6) k/uL RBC (4.30-5.90) m/uL Hgb (13.0-17.5) gm/dL MCHC (31.0-37.0) g/dL RDW (11.5-15.5) % Plt Count (150-450) k/uL Neutrophils # (Manual) (1.3-7.7) k/uL Lymphocytes # (Manual) (1.0-4.8) k/uL Nucleated RBCs (0-0) /100 WBC PT (9.0-12.0) sec INR (<1.2) ABG pH 7.54 H (7.35-7.45) ABG pCO2 27 L (35-45) mmHg ABG pO2 202 H (83-108) mmHg ABG O2 Saturation 98.2 H (94-97) % Plasma Lactic Acid Stoney 5.5 H* (0.7-2.0) mmol/L Procalcitonin 32.20 H (0.02-0.09) ng/mL 03/13/22 03/13/22 03/13/22 Range/Units 12:42 15:51 19:01 WBC 2.3 L (3.8-10.6) k/uL RBC 4.21 L (4.30-5.90) m/uL Hgb 12.5 L (13.0-17.5) gm/dL MCHC (31.0-37.0) g/dL RDW 18.3 H (11.5-15.5) % Plt Count 76 L (150-450) k/uL Neutrophils # (Manual) (1.3-7.7) k/uL Lymphocytes # (Manual) 0.53 L (1.0-4.8) k/uL Nucleated RBCs (0-0) /100 WBC PT 17.0 H (9.0-12.0) sec INR 1.7 H (<1.2) ABG pH (7.35-7.45) ABG pCO2 (35-45) mmHg ABG pO2 (83-108) mmHg ABG O2 Saturation (94-97) % Plasma Lactic Acid Stoney 4.7 H* (0.7-2.0) mmol/L Procalcitonin (0.02-0.09) ng/mL 03/13/22 03/14/22 Range/Units 19:01 07:15 WBC 1.7 L (3.8-10.6) k/uL RBC (4.30-5.90) m/uL Hgb (13.0-17.5) gm/dL MCHC 30.6 L (31.0-37.0) g/dL RDW 17.7 H (11.5-15.5) % Plt Count 44 L (150-450) k/uL Neutrophils # (Manual) 0.73 L (1.3-7.7) k/uL Lymphocytes # (Manual) 0.88 L (1.0-4.8) k/uL Nucleated RBCs 3 H (0-0) /100 WBC PT (9.0-12.0) sec INR (<1.2) ABG pH (7.35-7.45) ABG pCO2 (35-45) mmHg ABG pO2 (83-108) mmHg ABG O2 Saturation (94-97) % Plasma Lactic Acid Stoney 3.5 H* (0.7-2.0) mmol/L Procalcitonin (0.02-0.09) ng/mL Microbiology - Last 24 Hours (Table) 03/12/22 02:04 Blood Culture - Preliminary Blood No Growth after 48 hours 03/13/22 16:42 Nasal Screen MRSA/MSSA - Preliminary Nasopharyngeal Swab 03/11/22 17:09 Blood Culture - Preliminary Blood No Growth after 48 hours 03/11/22 17:11 Blood Culture - Preliminary Blood No Growth after 48 hours Assessment and Plan Assessment: Acute systolic CHF. 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 Acute pulmonary edema. Non-ST segment elevation myocardial infarction. Stage IV colon cancer, history of colostomy. Possible underlying sepsis, source unknown. Pancytopenia, probably related to chemotherapy. Mildly anion gap metabolic acidosis. Plan: Plan dated 03/13/2022. The patient is on Zosyn for suspected sepsis. Source is not clear. Blood and urine samples have been sent. The patient's pro-calcitonin level was quite high. We will continue to follow make recommendations along the way. Prognosis is guarded. The patient has a mild pancytopenia, probably chemotherapy induced. Plan dated 03/14/2022. The patient is again seen today in room 263. He is on BiPAP. He has a crescendo decrescendo pattern of breathing. It probably relates to fluid overload. The patient will be tried on AIRVO. The patient is on Zosyn. Cultures are negative. The repeat N-terminal proBNP is still elevated, but less than what it was. Labs, x-rays, and medications are reviewed. We will continue to follow make recommendations along the way. Prognosis is guarded. Time with Patient: Less than 30
[2022-03-14] MEDS: MAG HYDROX/AL HYDROX/SIMETH 30 ML, LIDOCAINE VISCOUS 2% 30 ML, diphenhydrAMINE ELIXIR 7... PO SCH ×8 (10:28→16:35)
[2022-03-14] MEDS: FUROSEMIDE 10 MG/ML 2 ML VIAL IV SCH (10:28)
--- NOTE | 2022-03-14 12:34 | US ---
EXAMINATION TYPE: US venous doppler duplex LE BI DATE OF EXAM: 03/14/2022 12:21 PM COMPARISON: NONE CLINICAL HISTORY: R/O DVT. SOB, leg swelling SIDE PERFORMED: Bilateral TECHNIQUE: The lower extremity deep venous system is examined utilizing real time linear array sonog lori with graded compression, doppler sonography and color-flow sonography. VESSELS IMAGED: Common Femoral Vein Deep Femoral Vein Greater Saphenous Vein * Femoral Vein Popliteal Vein Small Saphenous Vein * Proximal Calf Veins (* superficial vessels) Grayscale, color doppler, spectral doppler imaging performed of the deep veins of the lower extremiti es. There is normal flow, compressibility, vascular waveforms. Right Leg: Negative for DVT Left Leg: Negative for DVT IMPRESSION: No ultrasound evidence for deep venous thrombosis of the bilateral lower extremities.
[2022-03-14] MEDS ORDERED: ACETAMINOPHEN IV (For NPO) 1,000 MG in EMPTY BAG 1 BAG IVPB STA (19:20)
--- NOTE | 2022-03-14 19:49 | P.PN ---
Progress Note - Text Progress Note Date: 03/14/22 Chief Complaint: Short of breath This is a pleasant 62-year-old patient, follows with Dr. Candida Oshea. Patient follows with oncologist Dr. Flores. Patient has a diagnosis of colorectal cancer diagnosed about 4/2 years ago. Recently patient had bowel obstruction surgery with Dr. Lott. And has a resulting colostomy. Currently getting chemotherapy. Last chemotherapy was 4 days ago. Patient has become short of breath. Tired. Decreased appetite. Patient initially presented to outside hospital read his UA was negative, lactic acid was 5 troponin was 0.359 tachycardic negative for COVID RSV influenza. ProBNP was 28,300. Given IV fluids. No fever no chills. Tired rundown. Patient is accompanied by the at the ER.-Where I saw the patient. Patient has no previous cardiac history. No urinary symptoms. Stool output has not changed. Patient bit of mid suspected chemotherapy-induced myocarditis, causing troponin leak sinus tachycardia. Started on IV fluids being moved to ICU 03/12/2022: ICU: Patient spiked a fever last night. Patient empirically on vancomycin. Zosyn. Started on IV Lasix. IV fluids held. Lopressor. Poor appetite. Tired. Discussed with at the bedside. 03/13/2022: ICU. Septic. Patient on IV Zosyn and vancomycin. Vancomycin being discontinued because of worsening renal function. EF is come back to be 15%. Lasix reduced to 20 mg IV. Poor oral intake. Short of breath. On BiPAP 03/14/50%. Patient has been delirious. Some pancytopenia. Lopressor increased by cardiology to 50 mg twice a day. Spoke to the at the bedside. Suspected ischemic hepatitis 03/14/2022: ICU. Patient not irritable. On IV Zosyn. Still somewhat delirious. at the bedside. On IV Lasix 20 mg. Active Medications Al Hydroxide/Mg Hydroxide 30 ml/ Lidocaine HCl 30 ml/Diphenhydramine HCl 75 m g/Nystatin 3,000,000 unit 0 ml PO TID [facility] Last Admin: 03/14/22 16:35 Dose: Not Given Furosemide (Furosemide 10 Mg/Ml 2 Ml Vial) 20 mg IV DAILY [facility] Last Admin: 03/14/22 10:28 Dose: 20 mg Piperacillin Sod/Tazobactam (Sod 3.375 gm/ Sodium Chloride) 100 mls @ 25 mls/hr IVPB Q8H [facility]; Protocol Last Admin: 03/14/22 17:33 Dose: 25 mls/hr Lorazepam (Lorazepam 2 Mg/Ml Inj) 1 mg IV Q4HR PRN PRN Reason: Anxiety Metoprolol Tartrate (Metoprolol Tartrate 50 Mg Tab) 50 mg PO BID [facility] Last Admin: 03/14/22 10:16 Dose: Not Given Nitroglycerin (Nitroglycerin Sl Tabs 0.4 Mg Tab) 0.4 mg SUBLINGUAL Q5M PRN PRN Reason: Chest Pain Past medical history to include: Colorectal cancer with resultant colostomy, osteoarthritis, questionable CHF Social history: . Does not smoke or drink alcohol. [place] Family history: Reviewed, noncontributory to presentation Physical examination: VITAL SIGNS: 97.5, 107, 25, 109/83, 95% on a airvo 50/40 GENERAL: laying in bed, delirious EYES: Pupils equal. Conjunctiva normal. HEENT: External appearance of nose and ears normal, oral cavity dry mucous membranes. NECK: JVD not raised; masses not palpable. HEART: First and second heart sounds are normal; no edema. LUNGS: Respiratory rate increased; decreased breath sounds ABDOMEN: Soft, nontender, liver spleen not palpable, no masses palpable colostomy bag. PSYCH: Following occasional commands. Delirious. MUSCULOSKELETAL:No Clubbing/cyanosis;muscles-grossly intact INVESTIGATIONS, reviewed in the clinical context: 03/14/2022: WBC 1.7 hemoglobin 13.8 platelets 44 sodium 151 potassium 3.9 BUN 62 creatinine 1.56 AST 225 ALT 373 Abdominal ultrasound: Unremarkable 03/13/2022: WBC 2.3 hemoglobin 12.5 platelets 78 potassium 3.9 BUN 54 creatinine 1.53 lactic acid 5.5 AST 682 ALT 492 procalcitonin 32.2 lactic acid 5.5 proBNP 14802 03/12/2022: WBC 6.9 hemoglobin 11.9 platelets 163 potassium 4.8 BUN 36 creatinine 1.24. Lactic acid 11.2 AST 189 ALT 133 Blood work from onset hospital: UA negative, lactic acid 5, COVID 19/RSV/influenza/not detected White count 8.4 hemoglobin 13.1 platelets 296 proBNP 28,300 sodium 138 potassium 4.8 BUN 34 creatinine 1.1 AST [address] chest: Negative for PE, scattered nodular density EKG tracing personally reviewed by me-sinus tachycardia with flipped T waves Assessment and plan: - chemotherapy-induced myocarditis, manifesting as sinus tachycardia, troponin leak, resulting in shortness of breath: Slow to respond IV fluids. Supportive care. Telemetry. Watch for arrhythmias. Cardiology consult -Acute hypoxic respiratory failure, possible early ARDS: Slow to respond A AIRVO -Hypernatremia from free water deficit Patient on IV Lasix. Consult nephrology -Acute Cardiotoxicity/cardiomyopathy secondary to chemotherapy. Nonischemic. EF 15% Follow fluid balance closely. -Pancytopenia secondary to chemotherapy Follow CBC -Ischemic hepatitis: Slow to respond Follow blood pressure closely. -Acute metabolic encephalopathy/delirium from sepsis -Sepsis, with fever, tachycardia lactic acidosis: Slow to respond Empirically on and IV Zosyn. UA,, blood culture, stop vancomycin because of worsening renal function -Acute kidney injury suspect ATN from cardiorenal syndrome/sepsis: Worsening Follow renal function closely -Clinical dehydration: On presentation -Colostomy care -Troponin leak from myocarditis secondary to chemotherapy ICU. at the bedside. IV Lasix. IV Zosyn. Continue supportive care. Consult nephrology.
--- NOTE | 2022-03-15 00:44 | P.PN ---
Subjective Progress Note Date: 03/13/22 Principal diagnosis: Fever Patient is a 62-year-old male with a past medical history significant for stage IV colon cancer in this patient who is status post sigmoid resection and colostomy patient is currently on chemotherapy last chemo treatment for presentation hospital presenting with increasing shortness of breath and weakness. On today's evaluation that is 03/13/2022, the patient is afebrile the patient is slightly sleepy lethargic and not a very good historian currently requiring supplemental oxygen no vomiting diarrhea or any other changes reported by the nursing staff Objective - Vital Signs Vital signs: Vital Signs Temp 97.3 F L 03/13/22 08:00 Pulse 105 H 03/13/22 13:00 Resp 31 H 03/13/22 13:00 BP 108/98 03/13/22 13:00 Pulse Ox 100 03/13/22 13:00 FiO2 50 03/13/22 11:52 Intake & Output 03/12/22 03/13/22 03/13/22 18:59 06:59 18:59 Intake Total 736 1735 280 Output Total 900 665 750 Balance -164 1070 -470 Weight 81.1 kg Intake: IV 736 795 280 0.9 @ KVO 110 120 80 Piperacillin-Tazobactam 3 125 175 .375 gm In Sodium Chloride 0.9% 100 ml @ 25 mls/hr IVPB Q8H [facility] Rx#: [id number] Vancomycin 1,500 mg In 501 500 Sodium Chloride 0.9% 500 ml 500 ml @ 167 mls/hr IVPB Q12H [facility] Rx#: [id number] zosyn 200 Oral 940 Output: Urine 900 665 750 Other: Voiding Method External Catheter External Catheter External Catheter # Voids 1 - Exam GENERAL DESCRIPTION: Middle-age male lying in bed in no distress RESPIRATORY SYSTEM: Unlabored breathing , decreased breath sounds at bases HEART: S1 S2 regular rate and rhythm , ABDOMEN: Soft , no tenderness EXTREMITIES: No edema feet - Labs CBC & Chem 7: 03/14/22 07:15 03/14/22 07:15 Labs: Abnormal Lab Results - Last 24 Hours (Table) 03/12/22 03/13/22 03/13/22 Range/Units 13:30 07:03 07:03 WBC (3.8-10.6) k/uL RBC (4.30-5.90) m/uL Hgb (13.0-17.5) gm/dL Hct (39.0-53.0) % RDW (11.5-15.5) % Plt Count (150-450) k/uL Lymphocytes # (1.0-4.8) k/uL ABG pH (7.35-7.45) ABG pCO2 (35-45) mmHg ABG pO2 (83-108) mmHg ABG O2 Saturation (94-97) % Chloride 111 H (98-107) mmol/L Carbon Dioxide 19 L (22-30) mmol/L BUN 54 H (9-20) mg/dL Creatinine 1.53 H (0.66-1.25) mg/dL Plasma Lactic Acid Stoney (0.7-2.0) mmol/L Calcium 7.7 L (8.4-10.2) mg/dL Total Bilirubin 2.5 H (0.2-1.3) mg/dL AST 682 H (17-59) U/L ALT 492 H (4-49) U/L Total Protein 5.0 L (6.3-8.2) g/dL Albumin 2.6 L (3.5-5.0) g/dL Procalcitonin 32.20 H (0.02-0.09) ng/mL Urine Protein 1+ H (Negative) Urine Blood Trace H (Negative) Urine Bacteria Rare H (None) /hpf Hyaline Casts 3 H (0-2) /lpf Urine Mucus Rare H (None) /hpf 03/13/22 03/13/22 03/13/22 Range/Units 07:03 12:37 12:42 WBC 2.3 L (3.8-10.6) k/uL RBC 4.10 L (4.30-5.90) m/uL Hgb 11.9 L (13.0-17.5) gm/dL Hct 37.9 L (39.0-53.0) % RDW 18.2 H (11.5-15.5) % Plt Count 78 L D (150-450) k/uL Lymphocytes # 0.7 L (1.0-4.8) k/uL ABG pH 7.54 H (7.35-7.45) ABG pCO2 27 L (35-45) mmHg ABG pO2 202 H (83-108) mmHg ABG O2 Saturation 98.2 H (94-97) % Chloride (98-107) mmol/L Carbon Dioxide (22-30) mmol/L BUN (9-20) mg/dL Creatinine (0.66-1.25) mg/dL Plasma Lactic Acid Stoney 5.5 H* (0.7-2.0) mmol/L Calcium (8.4-10.2) mg/dL Total Bilirubin (0.2-1.3) mg/dL AST (17-59) U/L ALT (4-49) U/L Total Protein (6.3-8.2) g/dL Albumin (3.5-5.0) g/dL Procalcitonin (0.02-0.09) ng/mL Urine Protein (Negative) Urine Blood (Negative) Urine Bacteria (None) /hpf Hyaline Casts (0-2) /lpf Urine Mucus (None) /hpf 03/13/22 Range/Units 12:42 WBC 2.3 L (3.8-10.6) k/uL RBC 4.21 L (4.30-5.90) m/uL Hgb 12.5 L (13.0-17.5) gm/dL Hct (39.0-53.0) % RDW 18.3 H (11.5-15.5) % Plt Count (150-450) k/uL Lymphocytes # (1.0-4.8) k/uL ABG pH (7.35-7.45) ABG pCO2 (35-45) mmHg ABG pO2 (83-108) mmHg ABG O2 Saturation (94-97) % Chloride (98-107) mmol/L Carbon Dioxide (22-30) mmol/L BUN (9-20) mg/dL Creatinine (0.66-1.25) mg/dL Plasma Lactic Acid Stoney (0.7-2.0) mmol/L Calcium (8.4-10.2) mg/dL Total Bilirubin (0.2-1.3) mg/dL AST (17-59) U/L ALT (4-49) U/L Total Protein (6.3-8.2) g/dL Albumin (3.5-5.0) g/dL Procalcitonin (0.02-0.09) ng/mL Urine Protein (Negative) Urine Blood (Negative) Urine Bacteria (None) /hpf Hyaline Casts (0-2) /lpf Urine Mucus (None) /hpf Microbiology - Last 24 Hours (Table) 03/12/22 02:04 Blood Culture - Preliminary Blood No Growth after 24 hours 03/11/22 17:11 Blood Culture - Preliminary Blood No Growth after 24 hours 03/11/22 17:09 Blood Culture - Preliminary Blood No Growth after 24 hours Assessment and Plan (1) Fever Current Visit: Yes Status: Acute Code(s): R50.9 - FEVER, UNSPECIFIED SNOMED Code(s): 266556447 Plan: 1patient was in the hospital with sepsis and respiratory fever tachycardia tachypnea in this patient with stage IV colon cancer on chemotherapy patient did have elevated liver enzymes however no significant tenderness to right upper quadrant area with a question of possibly related to the hepatic metastasis versus gallbladder disease and will need to cover for the enteric gram-negative but likely pathogen less likely gram-positive. 2 ultrasound of the liver and gallbladder area did show some hydrops gallbladder with cholelithiasis 3-patient to continue with Zosyn while waiting for the cultures to finalize Time with Patient: Less than 30
[2022-03-15] MEDS: MAG HYDROX/AL HYDROX/SIMETH 30 ML, LIDOCAINE VISCOUS 2% 30 ML, diphenhydrAMINE ELIXIR 7... PO SCH ×16 (00:45→23:51)
--- NOTE | 2022-03-15 00:45 | P.PN ---
Subjective Progress Note Date: 03/14/22 Principal diagnosis: Fever Patient is a 62-year-old male with a past medical history significant for stage IV colon cancer in this patient who is status post sigmoid resection and colostomy patient is currently on chemotherapy last chemo treatment for presentation hospital presenting with increasing shortness of breath and weakness. On today's evaluation that is 03/14/2022, the patient remains to be afebrile the patient is more awake and alert today he is breathing comfortably on supplemental oxygen patient denies having any chest pain occasional cough no nausea no vomiting no abdominal pain or diarrhea Objective - Vital Signs Vital signs: Vital Signs Temp 97.5 F L 03/14/22 12:00 Pulse 120 H 03/14/22 17:00 Resp 28 H 03/14/22 17:00 BP 106/81 03/14/22 17:00 Pulse Ox 97 03/14/22 17:00 FiO2 40 03/14/22 15:37 Intake & Output 03/13/22 03/14/22 03/14/22 18:59 06:59 18:59 Intake Total 380 430 190 Output Total 7238 359 5927 Balance - Weight 78.2 kg Intake: IV 380 210 190 0.9 @ KVO 180 110 90 Piperacillin-Tazobactam 3 100 .375 gm In Sodium Chloride 0.9% 100 ml @ 25 mls/hr IVPB Q8H [facility] Rx#: [id number] zosyn 200 100 Oral 220 Output: Urine 9460 138 2723 Stool 1 Other: Voiding Method External Catheter External Catheter External Catheter # Voids 1 - Exam GENERAL DESCRIPTION: Middle-age male lying in bed in no distress RESPIRATORY SYSTEM: Unlabored breathing , decreased breath sounds at bases HEART: S1 S2 regular rate and rhythm , ABDOMEN: Soft , no tenderness EXTREMITIES: No edema feet - Labs CBC & Chem 7: 03/14/22 07:15 03/14/22 07:15 Labs: Abnormal Lab Results - Last 24 Hours (Table) 03/13/22 03/13/22 03/14/22 Range/Units 19:01 19:01 07:15 WBC (3.8-10.6) k/uL MCHC (31.0-37.0) g/dL RDW (11.5-15.5) % Plt Count (150-450) k/uL Neutrophils # (Manual) (1.3-7.7) k/uL Lymphocytes # (Manual) (1.0-4.8) k/uL Nucleated RBCs (0-0) /100 WBC PT 17.0 H (9.0-12.0) sec INR 1.7 H (<1.2) D-Dimer (<0.60) mg/L FEU Sodium 151 H (137-145) mmol/L Chloride 115 H (98-107) mmol/L Carbon Dioxide 20 L (22-30) mmol/L BUN 62 H (9-20) mg/dL Creatinine 1.56 H (0.66-1.25) mg/dL Glucose 106 H (74-99) mg/dL Plasma Lactic Acid Stoney 3.5 H* (0.7-2.0) mmol/L Calcium 7.8 L (8.4-10.2) mg/dL Total Bilirubin 2.1 H (0.2-1.3) mg/dL AST 225 H (17-59) U/L ALT 373 H (4-49) U/L Total Protein 5.2 L (6.3-8.2) g/dL Albumin 2.7 L (3.5-5.0) g/dL 03/14/22 03/14/22 Range/Units 07:15 09:57 WBC 1.7 L (3.8-10.6) k/uL MCHC 30.6 L (31.0-37.0) g/dL RDW 17.7 H (11.5-15.5) % Plt Count 44 L (150-450) k/uL Neutrophils # (Manual) 0.73 L (1.3-7.7) k/uL Lymphocytes # (Manual) 0.88 L (1.0-4.8) k/uL Nucleated RBCs 3 H (0-0) /100 WBC PT (9.0-12.0) sec INR (<1.2) D-Dimer 21.68 H (<0.60) mg/L FEU Sodium (137-145) mmol/L Chloride (98-107) mmol/L Carbon Dioxide (22-30) mmol/L BUN (9-20) mg/dL Creatinine (0.66-1.25) mg/dL Glucose (74-99) mg/dL Plasma Lactic Acid Stoney (0.7-2.0) mmol/L Calcium (8.4-10.2) mg/dL Total Bilirubin (0.2-1.3) mg/dL AST (17-59) U/L ALT (4-49) U/L Total Protein (6.3-8.2) g/dL Albumin (3.5-5.0) g/dL Microbiology - Last 24 Hours (Table) 03/13/22 16:42 Nasal Screen MRSA/MSSA - Final Nasopharyngeal Swab 03/12/22 02:04 Blood Culture - Preliminary Blood No Growth after 48 hours 03/11/22 17:09 Blood Culture - Preliminary Blood No Growth after 48 hours 03/11/22 17:11 Blood Culture - Preliminary Blood No Growth after 48 hours Assessment and Plan (1) Fever Current Visit: Yes Status: Acute Code(s): R50.9 - FEVER, UNSPECIFIED SNOMED Code(s): 632910338 Plan: 1patient was in the hospital with sepsis and respiratory fever tachycardia tachypnea in this patient with stage IV colon cancer on chemotherapy patient did have elevated liver enzymes however no significant tenderness to right upper quadrant area with a question of possibly related to the hepatic metastasis versus gallbladder disease and will need to cover for the enteric gram-negative but likely pathogen less likely gram-positive. 2 ultrasound of the liver and gallbladder area did show some hydrops gallbladder with cholelithiasis 3-patient seemed to showing some clinical improvement with resolution of the fever, patient to continue with Zosyn while waiting for the cultures to finalize Time with Patient: Less than 30
[2022-03-15] MEDS: PIPERACILLIN-TAZOBACTAM 3.375 GM in SODIUM CHLORIDE 0.9% 100 ML IVPB SCH ×3 (00:50→16:44)
[2022-03-15] MEDS: LORazepam 2 MG/ML INJ IV PRN (02:15)
[2022-03-15 06:35] LABS: Anisocytosis Slight; HCT 42.6 % (39.0-53.0); HGB 13.4 gm/dL (13.0-17.5); Hypochromasia Marked; MCH 29.5 pg (25.0-35.0); MCHC 31.5 g/dL (31.0-37.0); MCV 93.8 fL (80.0-100.0); Macrocytosis Slight; Mean Platelet Volume 7.9; RBC 4.54 m/uL (4.30-5.90); RDW 18.8 % (11.5-15.5)
[2022-03-15 06:48] LABS: Calcium 7.8 mg/dL (8.4-10.2); Potassium 3.2 mmol/L (3.5-5.1)
[2022-03-15] MEDS ORDERED: Potassium Replacement Protocol 1 EACH MISC MISCELLANE PRN (06:51)
--- NOTE | 2022-03-15 07:05 | XR ---
EXAMINATION TYPE: XR chest 1V portable DATE OF EXAM: 03/15/2022 5:32 AM COMPARISON: Chest radiograph from one day prior. TECHNIQUE: XR chest 1V portable Portable AP radiograph of the chest. CLINICAL INDICATION:Male, 62 years old with history of heart failure; FINDINGS: Lungs/Pleura: There is no evidence of pleural effusion, focal consolidation, or pneumothorax. Pulmonary vascularity: Pulmonary vascular congestion. Heart/mediastinum: Cardiac size is normal. Musculoskeletal: No acute osseous pathology. Other findings: None Lines/Tubes:[id number] projecting over the right hemithorax with distal tip at the cavoatrial junc tion. IMPRESSION: mild pulmonary vascular congestion.
[2022-03-15] MEDS: POTASSIUM CHLORIDE 10 MEQ in WATER FOR INJECTION 1 100ML.BAG IVPB SCH ×4 (07:08→13:01)
[2022-03-15 07:28] LABS: Magnesium 3.1 mg/dL (1.6-2.3)
--- NOTE | 2022-03-15 07:49 | P.PN ---
Subjective Progress Note Date: 03/15/22 Principal diagnosis: Heart failure secondary to heart failure with reduced ejection fraction The patient is a pleasant 62-year-old patient with a past medical history significant for colorectal cancer status post chemotherapy as well as severe LV dysfunction was admitted to the hospital with heart failure. March 132021 The patient was seen this morning. He stated he is feeling somewhat better in terms of shortness of breath. He is a slightly confused. He reports no pain in the chest. He remains hemodynamically stable beside mild sinus tachycardia. I'm going to increase the dose of beta jd from 25 mg by mouth twice a day to 50 mg by mouth twice a day with metoprolol tartrate. Consider adding JOEL inhibitor and Aldactone down the line 16 creatinine improved. The echo revealed severe LV dysfunction with EF around 15%. 03/14/2022 The patient was seen and evaluated this morning. He remains symptomatic in term of shortness of breath. He remains hypoxic required BiPAP. Otherwise he is stable from a cardiovascular standpoint of view, beside mild sinus tachycardia was resting heart rate around 100 beats per minutes. Currently he is on metoprolol which was increased yesterday. We are avoiding any JOEL inhibitor or Aldactone at this point in the light of worsening kidney function. He is on Lasix and he has been making urine. I'm going to obtain a chest x-ray this morning and also NT-proBNP. We might need to consider doing right heart cathet erization to assess his fluid status if his creatinine is getting worse. We'll follow-up with the patient. March 152021 The patient was seen this morning. He is in mild respiratory distress and seems to be tachypneic and tachycardic. Unfortunately he has not been taking the metoprolol because he failed swallow evaluation yesterday. His resting heart rate about 130 bpm. I'm going to start the patient on beta jd IV with metoprolol 2.5 mg every 6 hours. He still slightly congested on examination. He is on Lasix 20 mg IV daily. Overall the prognosis is poor Objective - Vital Signs Vital signs: Vital Signs Temp 97.5 F L 03/15/22 04:00 Pulse 131 H 03/15/22 07:00 Resp 35 H 03/15/22 07:00 BP 116/104 03/15/22 07:00 Pulse Ox 95 03/15/22 07:17 FiO2 40 03/15/22 07:17 Intake & Output 03/14/22 03/15/22 03/15/22 18:59 06:59 18:59 Intake Total 200 200 Output Total 1200 750 Balance -1000 -550 Intake: IV 200 100 0.9 @ KVO 100 100 zosyn 100 Intake, IV Titration 100 Amount Piperacillin-Tazobactam 3 100 .375 gm In Sodium Chloride 0.9% 100 ml @ 25 mls/hr IVPB Q8H [facility] Rx#: [id number] Output: Urine 1200 750 Other: Voiding Method External Catheter External Catheter - Constitutional General appearance: Present: no acute distress - Respiratory Respiratory: bilateral: diminished - Cardiovascular Rhythm: regular Heart sounds: normal: S1, S2 - Labs CBC & Chem 7: 03/15/22 05:43 03/15/22 05:43 Labs: Abnormal Lab Results - Last 24 Hours (Table) 03/14/22 03/14/22 03/14/22 Range/Units 07:15 07:15 09:57 WBC 1.7 L (3.8-10.6) k/uL MCHC 30.6 L (31.0-37.0) g/dL RDW 17.7 H (11.5-15.5) % Plt Count 44 L (150-450) k/uL Neutrophils # (Manual) 0.73 L (1.3-7.7) k/uL Lymphocytes # (Manual) 0.88 L (1.0-4.8) k/uL Nucleated RBCs 3 H (0-0) /100 WBC D-Dimer 21.68 H (<0.60) mg/L FEU Sodium 151 H (137-145) mmol/L Potassium (3.5-5.1) mmol/L Chloride 115 H (98-107) mmol/L Carbon Dioxide 20 L (22-30) mmol/L BUN 62 H (9-20) mg/dL Creatinine 1.56 H (0.66-1.25) mg/dL Glucose 106 H (74-99) mg/dL Calcium 7.8 L (8.4-10.2) mg/dL Magnesium (1.6-2.3) mg/dL Total Bilirubin 2.1 H (0.2-1.3) mg/dL AST 225 H (17-59) U/L ALT 373 H (4-49) U/L Total Protein 5.2 L (6.3-8.2) g/dL Albumin 2.7 L (3.5-5.0) g/dL 03/15/22 03/15/22 Range/Units 05:43 05:43 WBC 1.4 L* (3.8-10.6) k/uL MCHC (31.0-37.0) g/dL RDW 18.8 H (11.5-15.5) % Plt Count (150-450) k/uL Neutrophils # (Manual) (1.3-7.7) k/uL Lymphocytes # (Manual) (1.0-4.8) k/uL Nucleated RBCs (0-0) /100 WBC D-Dimer (<0.60) mg/L FEU Sodium 156 H (137-145) mmol/L Potassium 3.2 L (3.5-5.1) mmol/L Chloride 121 H (98-107) mmol/L Carbon Dioxide (22-30) mmol/L BUN 75 H (9-20) mg/dL Creatinine 1.72 H (0.66-1.25) mg/dL Glucose 121 H (74-99) mg/dL Calcium 7.8 L (8.4-10.2) mg/dL Magnesium 3.1 H (1.6-2.3) mg/dL Total Bilirubin (0.2-1.3) mg/dL AST (17-59) U/L ALT (4-49) U/L Total Protein (6.3-8.2) g/dL Albumin (3.5-5.0) g/dL Microbiology - Last 24 Hours (Table) 03/12/22 02:04 Blood Culture - Preliminary Blood No Growth after 72 hours 03/11/22 17:11 Blood Culture - Preliminary Blood No Growth after 72 hours 03/11/22 17:09 Blood Culture - Preliminary Blood No Growth after 72 hours 03/13/22 16:42 Nasal Screen MRSA/MSSA - Final Nasopharyngeal Swab Assessment and Plan Assessment: Assessment #1 history of colorectal cancer #2 severe LV dysfunction and likely to be nonischemic #3 heart failure with reduced ejection fraction exacerbation #4 sinus tachycardia #5 multiple comorbid conditions Plan Continue the current dose of IV Lasix Restart the patient back on metoprolol IV to he's able to take metoprolol by mouth Continue monitor the kidney function and electrolytes Overall poor prognosis
[2022-03-15 08:57] LABS: Band Neutrophils % 13 %; Monocytes # (M) 0.01 k/uL (0-1.0); Neutrophils % (M) 14 %; Nucleated Red Blood Cells 26 /100 WBC (0-0); Total Cells Counted 100
[2022-03-15 08:58] LABS: Lymphocytes # (M) 0.79 k/uL (1.0-4.8); Platelet Count 15 k/uL (150-450); WBC 1.1 k/uL (3.8-10.6)
[2022-03-15] MEDS: FUROSEMIDE 10 MG/ML 2 ML VIAL IV SCH (09:43)
[2022-03-15] MEDS: METOPROLOL TARTRATE 5 MG/5 ML VIAL IVP PRN ×2 (09:43→15:05)
--- NOTE | 2022-03-15 09:50 | P.PN ---
Subjective Progress Note Date: 03/15/22 Principal diagnosis: Sepsis. This is a 62-year-old white male with history of stage IV colon cancer. Patient was diagnosed a few years back, and he received recently chemotherapy this was last Sunday. Since then the patient has been complaining of shortness of breath, patient presented to [facility] emergency room, and he was complaining of shortness of breath, workup revealed evidence of cardiomegaly, congestive heart failure, and he had a CT angiogram of the chest showed no evidence of pulmonary embolism. Patient was transferred to [facility], and he was found to have significantly elevated BNP, his troponin was also elevated, and he had significantly elevated lactic acid initially was 6.3 and later showed some rise in his lactic acid. Patient has been complaining of mostly shortness of breath, no cough, no wheezing, no nausea no vomiting no abdominal pain. Patient was given small boluses of fluids because of his congestive heart failure and elevated lactic acid, however after he arrived to the floor patient developed full-blown congestive heart failure symptoms, had to be given Lasix, and had to be transferred to the ICU. 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 Cardiology consultation is pending. Patient is not a great historian. He seems to be generally weak, frail, and unable to volunteer much history Progress note dated 03/13/2022. This is a 62-year-old male who was admitted to the hospital on March 11, with an non-ST segment elevation myocardial infarction. He came to the intensive care unit, yesterday, with pulmonary edema, and sepsis. Currently, he's on 3 L of oxygen, and getting saline at 10 mL an hour. He is also getting Zosyn, and has a history of stage IV colon cancer. White count 2.3, hemoglobin 11.9, hematocrit 37.9, and platelet count 78,000. Sodium 143, potassium 3.9, chlorides 111, anion gap 13, BUN 54, creatinine 1.53. AST is 682. ALT is 492. Pro-calcitonin level is 32.2. Abdominal ultrasound shows hydropic gallbladder with cholelithiasis. The patient is not tender in the right upper quadrant. Progress note dated 03/14/2022. 62-year-old male, again seen in the intensive care unit. The patient was admitted to the hospital on March 11, with non-ST segment elevation myocardial infarction. The patient was transferred to the intensive care unit, because of pulmonary edema, and sepsis. Currently, the patient's on BiPAP, with settings of 12/6 and 40%. He is getting saline at KVO. We are going to trial him on some AIRVO. His respiratory pattern is that of Max-Wallis. Currently, the patient's on Zosyn. We will recheck a d-dimer, and N-terminal proBNP. White count 1.7, hemoglobin 13.8, hematocrit 45, and platelet count 44,000. PT 17 with an INR 1.7. Most recent N-terminal proBNP is 34,200. Urine looks pretty benign. Blood cultures are thus far negative. Progress note dated 03/15/2022. 62-year-old male again seen in the intensive care unit, room 263. His and son are in the room. He was minute to the hospital on March 11 with non-ST segment elevation myocardial infarction. He was transferred to the intensive ca re unit because of pulmonary edema and sepsis. Currently, he is on AIRVO, at 50 L/m, with an FiO2 40%. His echocardiogram shows an ejection fraction of 10%. The patient did fail his swallow evaluation. He is getting saline at KVO, which will be switched to D5W at 100 mL an hour. I had a long conversation with his today. She was in agreement with the fact that the patient would not want to be on my support. The patient will be made a DO NOT RESUSCITATE/DO NOT INTUBATE patient. I assured her that we would continue to do everything we could to get him better, although his overall prognosis is very poor. White count is 1.1, hemoglobin 13.4, hematocrit 42.6, and platelet count only 15,000. Sodium 156, potassium 3.2, chlorides 121, CO2 27, BUN 75, creatinine 1.72. D- dimer was 21.68. Dopplers of the lower extremities were negative for DVT. Chest x-ray shows mild pulmonary vascular congestion. Objective - Vital Signs Vital signs: Vital Signs Temp 97.5 F L 03/15/22 04:00 Pulse 131 H 03/15/22 07:00 Resp 35 H 03/15/22 07:00 BP 116/104 03/15/22 07:00 Pulse Ox 95 03/15/22 07:17 FiO2 40 03/15/22 07:17 Intake & Output 03/14/22 03/15/22 03/15/22 18:59 06:59 18:59 Intake Total 200 200 Output Total 1200 750 Balance -1000 -550 Intake: IV 200 100 0.9 @ KVO 100 100 zosyn 100 Intake, IV Titration 100 Amount Piperacillin-Tazobactam 3 100 .375 gm In Sodium Chloride 0.9% 100 ml @ 25 mls/hr IVPB Q8H [facility] Rx#: [id number] Output: Urine 1200 750 Other: Voiding Method External Catheter External Catheter - Exam No acute distress, lethargic/somnolent. Max- Wallis respirations. Currently on AIRVO at 50 L/m, and 40%. HEENT examination is grossly unremarkable. Neck supple. Full range of motion. No adenopathy thyromegaly or neck vein distention. Cardiovascular examination reveals regular rhythm rate. S1-S2 normal. No S3 or S4. No discernible murmur noted. Heart rate 131 bpm. Lungs reveal mostly clear breath sounds. Minimal scattered rhonchi. No wheezes or crackles. Saturations are 95% on AIRVO. Abdomen soft bowel sounds are heard. No masses or tenderness. Colostomy bag noted. Extremities are intact. No cyanosis clubbing or edema. Skin is without rash or lesion. Neurologic examination is very lethargic/somnolent, but does arouse. - Labs CBC & Chem 7: 03/15/22 05:43 03/15/22 05:43 Labs: Abnormal Lab Results - Last 24 Hours (Table) 03/14/22 03/14/22 03/15/22 Range/Units 07:15 09:57 05:43 WBC 1.1 L* (3.8-10.6) k/uL RDW 18.8 H (11.5-15.5) % Plt Count 15 L* D (150-450) k/uL Neutrophils # (Manual) 0.20 L* (1.3-7.7) k/uL Lymphocytes # (Manual) 0.79 L (1.0-4.8) k/uL Nucleated RBCs 26 H (0-0) /100 WBC D-Dimer 21.68 H (<0.60) mg/L FEU Sodium 151 H (137-145) mmol/L Potassium (3.5-5.1) mmol/L Chloride 115 H (98-107) mmol/L Carbon Dioxide 20 L (22-30) mmol/L BUN 62 H (9-20) mg/dL Creatinine 1.56 H (0.66-1.25) mg/dL Glucose 106 H (74-99) mg/dL Calcium 7.8 L (8.4-10.2) mg/dL Magnesium (1.6-2.3) mg/dL Total Bilirubin 2.1 H (0.2-1.3) mg/dL AST 225 H (17-59) U/L ALT 373 H (4-49) U/L Total Protein 5.2 L (6.3-8.2) g/dL Albumin 2.7 L (3.5-5.0) g/dL 03/15/22 Range/Units 05:43 WBC (3.8-10.6) k/uL RDW (11.5-15.5) % Plt Count (150-450) k/uL Neutrophils # (Manual) (1.3-7.7) k/uL Lymphocytes # (Manual) (1.0-4.8) k/uL Nucleated RBCs (0-0) /100 WBC D-Dimer (<0.60) mg/L FEU Sodium 156 H (137-145) mmol/L Potassium 3.2 L (3.5-5.1) mmol/L Chloride 121 H (98-107) mmol/L Carbon Dioxide (22-30) mmol/L BUN 75 H (9-20) mg/dL Creatinine 1.72 H (0.66-1.25) mg/dL Glucose 121 H (74-99) mg/dL Calcium 7.8 L (8.4-10.2) mg/dL Magnesium 3.1 H (1.6-2.3) mg/dL Total Bilirubin (0.2-1.3) mg/dL AST (17-59) U/L ALT (4-49) U/L Total Protein (6.3-8.2) g/dL Albumin (3.5-5.0) g/dL Microbiology - Last 24 Hours (Table) 03/12/22 02:04 Blood Culture - Preliminary Blood No Growth after 72 hours 03/11/22 17:11 Blood Culture - Preliminary Blood No Growth after 72 hours 03/11/22 17:09 Blood Culture - Preliminary Blood No Growth after 72 hours 03/13/22 16:42 Nasal Screen MRSA/MSSA - Final Nasopharyngeal Swab Assessment and Plan Assessment: Acute systolic CHF. 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 Acute pulmonary edema. Non-ST segment elevation myocardial infarction. Stage IV colon cancer, history of colostomy. Possible underlying sepsis, source unknown. Bicytopenia, likely related to chemotherapy. No evidence of lower extremity DVT. Hypernatremia. Mildly anion gap metabolic acidosis. Plan: Plan dated 03/13/2022. The patient is on Zosyn for suspected sepsis. Source is not clear. Blood and urine samples have been sent. The patient's pro-calcitonin level was quite hig h. We will continue to follow make recommendations along the way. Prognosis is guarded. The patient has a mild pancytopenia, probably chemotherapy induced. Plan dated 03/14/2022. The patient is again seen today in room 263. He is on BiPAP. He has a crescendo decrescendo pattern of breathing. It probably relates to fluid overload. The patient will be tried on AIRVO. The patient is on Zosyn. Cultures are negative. The repeat N-terminal proBNP is still elevated, but less than what it was. Labs, x-rays, and medications are reviewed. We will continue to follow make recommendations along the way. Prognosis is guarded. Plan dated 03/15/2022. The patient is started on dextrose, at 100 mL an hour. This will help reverse the hypernatremia. The patient continues on AIRVO. I had a long conversation with the . She agrees to make the patient a DO NOT RESUSCITATE/DO NOT INTUBATE patient. I believe that to be the correct decision. The patient continues on Zosyn. Cultures are thus far negative. He is getting a white blood cell stimulator. Prognosis is poor. Time with Patient: Less than 30
--- NOTE | 2022-03-15 10:51 | P.NPCON ---
History of Present Illness - Reason for Consult acute renal failure - History of Present Illness Reason for consult: Acute kidney injury History of present illness: Patient is a 62-year-old male seen in consultation for acute kidney injury. Patient baseline creatinine was near 1 from June 2021. This admission his creatinine was 1.24 and is up to 1.72 today. Patient was transferred from another facility due to shortness of breath. Patient has history of colon cancer and last received chemotherapy about a week ago. Patient has been receiving IV Lasix and is currently on 20 mg IV once daily. He was receiving higher dose before. Patient's ejection fraction is 10-15%. He is not on any vasopressors. He is currently on airvo. Patient is not a reliable historian at this time. Family is present at bedside. Patient's sodium level was 151 yesterday and is up to 156 today. Patient has an external catheter and is making urine. No history of diabetes. Denies use of nonsteroidals. Started on D5 W this morning. Vital signs are stable. General: Resting in bed. HEENT: Head exam is unremarkable. On airvo. LUNGS: Breath sounds decreased. HEART: Tachycardic. ABDOMEN: Soft, no distention. EXTREMITITES: No edema. Past Medical History Past Medical History: Cancer, Heart Failure, Osteoarthritis (OA), Sleep Apnea/CPAP/BIPAP Additional Past Medical History / Comment(s): Rectal Cancer History of Any Multi-Drug Resistant Organisms: None Reported Past Surgical History: Bowel Resection Past Psychological History: Anxiety Smoking Status: Never smoker Past Alcohol Use History: None Reported Past Drug Use History: None Reported Medications and Allergies Home Medications Medication Instructions Recorded Confirmed Type Diphenoxylate HCl/Atropine 1 tab PO BID PRN 03/11/22 03/11/22 History [Lomotil 2.5-0.025 mg Tablet] HYDROcodone/APAP 5-325MG [Bourg 1 tab PO Q4HR PRN 03/11/22 03/11/22 History 5-325] Lidocaine Viscous 2% [Xylocaine 1 dose MUCOUS MEM BID PRN 03/11/22 03/11/22 History Viscous] Omeprazole [PriLOSEC] 40 mg PO DAILY 03/11/22 03/11/22 History Allergies Allergy/AdvReac Type Severity Reaction Status Date / Time No Known Allergies Allergy Verified 03/11/22 16:17 Physical Exam Vitals: Vital Signs Temp Pulse Resp BP Pulse Ox FiO2 03/15/22 10:00 131 H 26 H 103/82 94 L 03/15/22 09:00 113 H 37 H 105/71 95 03/15/22 08:00 98.9 F 134 H 30 H 116/104 93 L 40 03/15/22 07:17 95 40 03/15/22 07:00 131 H 35 H 116/104 97 03/15/22 06:00 133 H 31 H 116/104 91 L 03/15/22 05:00 123 H 41 H 116/102 94 L 03/15/22 04:00 97.5 F L 129 H 26 H 96/81 95 03/15/22 03:18 98 40 03/15/22 03:00 123 H 28 H 111/78 96 03/15/22 02:00 130 H 27 H 116/62 96 03/15/22 01:00 112 H 33 H 118/105 98 03/15/22 00:16 121 H 27 H 135/79 98 03/15/22 00:00 97.4 F L 117 H 30 H 117/88 95 03/14/22 23:53 97 40 03/14/22 23:00 125 H 16 114/89 95 03/14/22 22:00 122 H 20 103/89 97 03/14/22 21:00 125 H 30 H 104/92 97 03/14/22 20:57 95 40 03/14/22 20:00 99.5 F 105 H 31 H 109/82 97 03/14/22 19:00 114 H 10 L 112/89 96 03/14/22 18:00 115 H 38 H 115/99 93 L 03/14/22 17:00 120 H 28 H 106/81 97 03/14/22 16:00 106 H 35 H 114/98 97 03/14/22 15:37 40 03/14/22 15:00 101 H 32 H 103/87 98 03/14/22 14:00 115 H 15 108/86 99 03/14/22 13:00 118 H 33 H 117/77 98 03/14/22 12:00 97.5 F L 97 31 H 94/59 97 40 03/14/22 11:00 108 H 25 H 109/83 95 03/14/22 10:51 40 Intake and Output 03/14/22 03/15/22 03/15/22 22:59 06:59 14:59 Intake Total 80 160 300 Output Total 450 500 0 Balance -370 -340 300 Intake: IV 80 60 300 0.9 @ KVO 80 60 Piperacillin-Tazobactam 3 100 .375 gm In Sodium Chloride 0.9% 100 ml @ 25 mls/hr IVPB Q8H [facility] Rx#: [id number] Potassium Chloride 10 meq 200 In Water For Injection 1 100ml.bag @ 100 mls/hr IVPB Q1HR [facility] Rx#: [id number] Intake, IV Titration 100 Amount Piperacillin-Tazobactam 3 100 .375 gm In Sodium Chloride 0.9% 100 ml @ 25 mls/hr IVPB Q8H [facility] Rx#: [id number] Output: Urine 450 500 0 Other: Voiding Method External Catheter External Catheter Results - Lab Results Most recent lab results ABG pH 7.54 (7.35-7.45) H 03/13/22 12:37 ABG pCO2 27 mmHg (35-45) L 03/13/22 12:37 ABG pO2 202 mmHg (83-108) H 03/13/22 12:37 ABG HCO3 23 mmol/L (21-25) 03/13/22 12:37 ABG O2 Saturation 98.2 % (94-97) H 03/13/22 12:37 Calcium 7.8 mg/dL (8.4-10.2) L 03/15/22 05:43 Magnesium 3.1 mg/dL (1.6-2.3) H 03/15/22 05:43 03/15/22 05:43 03/15/22 05:43 Assessment and Plan Plan: Assessment: 1. Acute kidney injury secondary to ATN secondary to hemodynamic instability and diuresis. Baseline creatinine near 1 from June 2021 and is 1.72 today. Nonoliguric. No hydronephrosis noted on kidney ultrasound. 2. Hypernatremia from lock oral water intake and free water diuresis. 3. Hypokalemia from diuresis and poor intake. 4. Colon cancer. Received chemotherapy last week. 5. Acute on chronic systolic CHF with ejection fraction of 10-15%. 6. Sinus tach on IV metoprolol. Cardiology following. Plan: Agree with D5W. Replace potassium. Maintain IV Lasix. Avoid nephrotoxins. Continue to monitor renal function and urine output. Repeat BMP this afternoon. Prognosis guarded. Case discussed with family present at bedside. Thank you for the consultation. I will continue to follow the patient with you during his hospital stay.
[2022-03-15 11:39] LABS: Glucose,Whole Blood 127 mg/dL (70-110)
[2022-03-15] MEDS: DEXTROSE 5% IN WATER 1,000 ML IV SCH ×2 (11:43→23:51)
--- NOTE | 2022-03-15 16:01 | P.PN ---
Progress Note - Text Progress Note Date: 03/15/22 Chief Complaint: Short of breath This is a pleasant 62-year-old patient, follows with Dr. Candida Oshea. Patient follows with oncologist Dr. Florse. Patient has a diagnosis of colorectal cancer diagnosed about 4/2 years ago. Recently patient had bowel obstruction surgery with Dr. Lott. And has a resulting colostomy. Currently getting chemotherapy. Last chemotherapy was 4 days ago. Patient has become short of breath. Tired. Decreased appetite. Patient initially presented to outside hospital read his UA was negative, lactic acid was 5 troponin was 0.359 tachycardic negative for COVID RSV influenza. ProBNP was 28,300. Given IV fluids. No fever no chills. Tired rundown. Patient is accompanied by the at the ER.-Where I saw the patient. Patient has no previous cardiac history. No urinary symptoms. Stool output has not changed. Patient bit of mid suspected chemotherapy-induced myocarditis, causing troponin leak sinus tachycardia. Started on IV fluids being moved to ICU 03/12/2022: ICU: Patient spiked a fever last night. Patient empirically on vancomycin. Zosyn. Started on IV Lasix. IV fluids held. Lopressor. Poor appetite. Tired. Discussed with at the bedside. 03/13/2022: ICU. Septic. Patient on IV Zosyn and vancomycin. Vancomycin being discontinued because of worsening renal function. EF is come back to be 15%. Lasix reduced to 20 mg IV. Poor oral intake. Short of breath. On BiPAP 03/14/50%. Patient has been delirious. Some pancytopenia. Lopressor increased by cardiology to 50 mg twice a day. Spoke to the at the bedside. Suspected ischemic hepatitis 03/14/2022: ICU. Patient not irritable. On IV Zosyn. Still somewhat delirious. at the bedside. On IV Lasix 20 mg. 03/15/2022: ICU. On AIRVO. IV Zosyn. IV Lasix 20 mg. D5W started 100 mL an hour. Patient remains delirious. Nothing by mouth because of high risk of aspiration. Active Medications Al Hydroxide/Mg Hydroxide 30 ml/ Lidocaine HCl 30 ml/Diphenhydramine HCl 75 mg/Nystatin 3,000,000 unit 0 ml PO TID [facility] Last Admin: 03/15/22 09:25 Dose: Not Given Filgrastim-Sndz (Filgrastim-Sndz 480 Mcg/0.8 Ml Syringe) 480 mcg SQ DAILY@1800 [facility] Furosemide (Furosemide 10 Mg/Ml 2 Ml Vial) 20 mg IV DAILY [facility] Last Admin: 03/15/22 09:43 Dose: 20 mg Piperacillin Sod/Tazobactam (Sod 3.375 gm/ Sodium Chloride) 100 mls @ 25 mls/hr IVPB Q8H [facility]; Protocol Last Admin: 03/15/22 09:43 Dose: 25 mls/hr Dextrose/Water (Dextrose 5%-Water Iv Soln) 1,000 mls @ 100 mls/hr IV .Q10H [facility] Last Admin: 03/15/22 11:43 Dose: 100 mls/hr Lorazepam (Lorazepam 2 Mg/Ml Inj) 1 mg IV Q4HR PRN PRN Reason: Anxiety Last Admin: 03/15/22 02:15 Dose: 1 mg Metoprolol Tartrate (Metoprolol Tartrate 5 Mg/5 Ml Vial) 2.5 mg IVP Q6HR PRN PRN Reason: Tachyarrhythmias Last Admin: 03/15/22 15:05 Dose: 2.5 mg Miscellaneous Information (Potassium Replacement Protocol 1 Each Misc) 1 each MISCELLANE DAILY PRN; Protocol PRN Reason: Per Protocol Nitroglycerin (Nitroglycerin Sl Tabs 0.4 Mg Tab) 0.4 mg SUBLINGUAL Q5M PRN PRN Reason: Chest Pain Past medical history to include: Colorectal cancer with resultant colostomy, osteoarthritis, questionable CHF Social history: . Does not smoke or drink alcohol. [place] Family history: Reviewed, noncontributory to presentation Physical examination: VITAL SIGNS: 98.9, 1:30, 30, 106/114, 93% on AIRVO 50/40 GENERAL: laying in bed, delirious EYES: Pupils equal. Conjunctiva normal. HEENT: External appearance of nose and ears normal, oral cavity dry mucous membranes. NECK: JVD not raised; masses not palpable. HEART: First and second heart sounds are normal; no edema. LUNGS: Respiratory rate increased; decreased breath sounds ABDOMEN: Soft, nontender, liver spleen not palpable, no masses palpable colostomy bag. PSYCH: Delirious. MUSCULOSKELETAL:No Clubbing/cyanosis;muscles-grossly intact INVESTIGATIONS, reviewed in the clinical context: 03/15/2022: WBC 1.1 hemoglobin 13.4 platelets 15 neutrophils 0.2 sodium 156 progression 3.2 BUN 75 creatinine 1.7 to 03/14/2022: WBC 1.7 hemoglobin 13.8 platelets 44 sodium 151 potassium 3.9 BUN 62 creatinine 1.56 AST 225 ALT 373 Abdominal ultrasound: Unremarkable 03/13/2022: WBC 2.3 hemoglobin 12.5 platelets 78 potassium 3.9 BUN 54 creatinine 1.53 lactic acid 5.5 AST 682 ALT 492 procalcitonin 32.2 lactic acid 5.5 proBNP [id number] 03/12/2022: WBC 6.9 hemoglobin 11.9 platelets 163 potassium 4.8 BUN 36 creatinine 1.24. Lactic acid 11.2 AST 189 ALT 133 Blood work from onset hospital: UA negative, lactic acid 5, COVID 19/RSV/influenza/not detected White count 8.4 hemoglobin 13.1 platelets 296 proBNP 28,300 sodium 138 potassium 4.8 BUN 34 creatinine 1.1 AST [address] chest: Negative for PE, scattered nodular density EKG tracing personally reviewed by me-sinus tachycardia with flipped T waves Assessment and plan: - chemotherapy-induced myocarditis, manifesting as sinus tachycardia, troponin leak, resulting in shortness of breath: Slow to respond IV fluids. Supportive care. Telemetry. Watch for arrhythmias. Follow with Cardiology -Acute hypoxic respiratory failure, possible early ARDS: Slow to respond AIRVO -Hypernatremia from free water deficit: Worsening Patient on IV Lasix. Consult nephrology. Started on D5W 100 mL out. -Acute Cardiotoxicity/cardiomyopathy secondary to chemotherapy. Nonischemic. EF 15% Follow fluid balance closely. -Pancytopenia secondary to chemotherapy: Some worsening Follow CBC -Ischemic hepatitis: Slow to respond Follow blood pressure closely. -Acute metabolic encephalopathy/delirium from sepsis: Slow to respond -Sepsis, with fever, tachycardia lactic acidosis: Slow to respond Empirically on IV Zosyn. UA,, blood culture, -Acute kidney injury suspect ATN from cardiorenal syndrome/sepsis: Worsening Follow renal function closely. Follow with nephrology -Clinical dehydration: On presentation -Colostomy care -Troponin leak from myocarditis secondary to chemotherapy ICU. at the bedside. IV Lasix. IV Zosyn. D5W 100 mL however Continue supportive care. Prognosis guarded
[2022-03-15] MEDS ORDERED: FILGRASTIM-SNDZ 480 MCG/0.8 ML SYRINGE SQ SCH (18:00)
[2022-03-15 18:23] LABS: Calcium 7.7 mg/dL (8.4-10.2)
--- NOTE | 2022-03-15 18:27 | P.PN ---
Subjective Progress Note Date: 03/15/22 Principal diagnosis: fever, Hx met colon adenocarcinoma, on treatment In f/u today patient is having fewer episodes of lucidity, despite use of BiPAP, patient is still having episodes of apnea, He is now on airvo. He is experiencing periods of apnea every several minutes, lasting 7-15 seconds. His is at the bedside. His is at the bedside. Objective - Vital Signs Vital signs: Vital Signs Temp 98.9 F 03/15/22 08:00 Pulse 121 H 03/15/22 15:00 Resp 11 L 03/15/22 15:00 BP 108/84 03/15/22 15:00 Pulse Ox 94 L 03/15/22 15:00 FiO2 40 03/15/22 15:08 Intake & Output 03/14/22 03/15/22 03/15/22 18:59 06:59 18:59 Intake Total 200 200 700 Output Total 4391 175 7515 Balance -1000 -550 -400 Intake: IV 200 100 700 0.9 @ KVO 100 100 Dextrose 5% in Water 1, 400 000 ml @ 100 mls/hr IV . Q10H [facility] Rx#:[id number] Piperacillin-Tazobactam 3 100 .375 gm In Sodium Chloride 0.9% 100 ml @ 25 mls/hr IVPB Q8H [facility] Rx#: [id number] Potassium Chloride 10 meq 200 In Water For Injection 1 100ml.bag @ 100 mls/hr IVPB Q1HR [facility] Rx#: [id number] zosyn 100 Intake, IV Titration 100 Amount Piperacillin-Tazobactam 3 100 .375 gm In Sodium Chloride 0.9% 100 ml @ 25 mls/hr IVPB Q8H [facility] Rx#: [id number] Output: Urine 2419 527 8396 Other: Voiding Method External Catheter External Catheter External Catheter - Constitutional General appearance: Present: average body habitus, disheveled, mild distress - EENT ENT: Present: hearing grossly normal - Respiratory Details: Apnea, Max-Walils - Cardiovascular Details: Sustained tachycardia - Gastrointestinal Gastrointestinal Comment(s): No documented ostomy output - Musculoskeletal Musculoskeletal: Present: generalized weakness - Psychiatric Psychiatric Comment(s): Patient responded appropriately to once while I was in the room - Labs CBC & Chem 7: 03/15/22 05:43 03/15/22 05:43 Labs: Abnormal Lab Results - Last 24 Hours (Table) 03/15/22 03/15/22 03/15/22 Range/Units 05:43 05:43 11:37 WBC 1.1 L* (3.8-10.6) k/uL RDW 18.8 H (11.5-15.5) % Plt Count 15 L* D (150-450) k/uL Neutrophils # (Manual) 0.20 L* (1.3-7.7) k/uL Lymphocytes # (Manual) 0.79 L (1.0-4.8) k/uL Nucleated RBCs 26 H (0-0) /100 WBC Sodium 156 H (137-145) mmol/L Potassium 3.2 L (3.5-5.1) mmol/L Chloride 121 H (98-107) mmol/L BUN 75 H (9-20) mg/dL Creatinine 1.72 H (0.66-1.25) mg/dL Glucose 121 H (74-99) mg/dL POC Glucose (mg/dL) 127 H (70-110) mg/dL Calcium 7.8 L (8.4-10.2) mg/dL Magnesium 3.1 H (1.6-2.3) mg/dL Microbiology - Last 24 Hours (Table) 03/12/22 02:04 Blood Culture - Preliminary Blood No Growth after 72 hours 03/11/22 17:11 Blood Culture - Preliminary Blood No Growth after 72 hours 03/11/22 17:09 Blood Culture - Preliminary Blood No Growth after 72 hours 03/13/22 16:42 Nasal Screen MRSA/MSSA - Final Nasopharyngeal Swab - Imaging and Cardiology Venous US: report reviewed Assessment and Plan (1) Heart failure Current Visit: Yes Status: Acute Priority: High Code(s): I50.9 - HEART FAILURE, UNSPECIFIED SNOMED Code(s): 71252297 (2) Colon cancer Current Visit: Yes Status: Chronic Priority: High Code(s): C18.9 - MALIGNANT NEOPLASM OF COLON, UNSPECIFIED SNOMED Code(s): 961464078 (3) Tachycardia Current Visit: Yes Status: Acute Priority: High Code(s): R00.0 - TACHYCARDIA, UNSPECIFIED SNOMED Code(s): 5340672 (4) Apnea, sleep Current Visit: Yes Status: Acute Priority: High Code(s): G47.30 - SLEEP APNEA, UNSPECIFIED SNOMED Code(s): 70827925 Plan: Fever on admit. On abx. Cultures neg to date, discussed case with ID briefly, going to complete a course of abx. Lactic acid has been trending down Tried bipap for apnea- reported that patient has apnea but, never had a formal sleep study. Unfortunately, despite trying, patient is having persistent periods of apnea, these are coming closer together, followed by Max-Wallis breathing. Further drop in WBC and plt counts. G-CSF ordered. Cont to hold asa, no anticoagulation, SCDs ordered. CBC in AM. LVEF 15%. No Hx of cardiac condition. Looked for any previous ECHO-both in this medical record and in ofc medical record-no other results found. Pt did receive VEGF inhibitor so, that will be discontinued. Cardiology is on consult. Progressive renal failure. Patient has been seen by Nephrology. Doppler of the bilateral lower extremities was negative for DVT. Report the patient failed swallow evaluation. He is currently nothing by mouth. Patient is had only very small amounts of formed stool from ostomy since admit. He is not Exhibiting any unusual behaviors to abdominal palpation to suggest abdominal pain/acute abd. Patient's is very realistic about his condition and knows her very well. No plans for dialysis. Patient is a no code. Agree with continuation of supportive care at this time.
[2022-03-15 18:48] LABS: Potassium 4.1 mmol/L (3.5-5.1)
[2022-03-16 00:18] LABS: Glucose,Whole Blood 154 mg/dL (70-110)
[2022-03-16] MEDS: PIPERACILLIN-TAZOBACTAM 3.375 GM in SODIUM CHLORIDE 0.9% 100 ML IVPB SCH ×2 (01:12→08:41)
[2022-03-16 05:46] VITALS: TEMP 97.9
[2022-03-16] MEDS: METOPROLOL TARTRATE 5 MG/5 ML VIAL IVP PRN (06:11)
[2022-03-16 06:35] LABS: Anisocytosis Moderate; HCT 38.7 % (39.0-53.0); HGB 12.1 gm/dL (13.0-17.5); Hypochromasia Marked; MCH 29.2 pg (25.0-35.0); MCHC 31.1 g/dL (31.0-37.0); MCV 93.7 fL (80.0-100.0); Macrocytosis Slight; RBC 4.13 m/uL (4.30-5.90); RDW 20.3 % (11.5-15.5)
[2022-03-16 06:36] LABS: Calcium 7.4 mg/dL (8.4-10.2); Potassium 3.9 mmol/L (3.5-5.1)
[2022-03-16 06:38] LABS: Platelet Count 15 k/uL (150-450)
[2022-03-16 06:58] LABS: Band Neutrophils % 8 %; Neutrophils % (M) 4 %
[2022-03-16 06:59] LABS: Nucleated Red Blood Cells 52 /100 WBC (0-0); Total Cells Counted 100
[2022-03-16 07:00] LABS: Eosinophils # (M) 0.04 k/uL (0-0.7); Lymphocytes # (M) 0.88 k/uL (1.0-4.8); Monocytes # (M) 0.04 k/uL (0-1.0); WBC 1.1 k/uL (3.8-10.6)
[2022-03-16 07:01] LABS: Anisocytosis (M) Present; Ovalocytes Present; Poikilocytosis (M) Present; Polychromasia Present; RBC Fragments Present
--- NOTE | 2022-03-16 07:53 | P.PN ---
Subjective Progress Note Date: 03/16/22 Principal diagnosis: Heart failure secondary to heart failure with reduced ejection fraction The patient is a pleasant 62-year-old patient with a past medical history significant for colorectal cancer status post chemotherapy as well as severe LV dysfunction was admitted to the hospital with heart failure. March 132021 The patient was seen this morning. He stated he is feeling somewhat better in terms of shortness of breath. He is a slightly confused. He reports no pain in the chest. He remains hemodynamically stable beside mild sinus tachycardia. I'm going to increase the dose of beta jd from 25 mg by mouth twice a day to 50 mg by mouth twice a day with metoprolol tartrate. Consider adding JOEL inhibitor and Aldactone down the line 16 creatinine improved. The echo revealed severe LV dysfunction with EF around 15%. 03/14/2022 The patient was seen and evaluated this morning. He remains symptomatic in term of shortness of breath. He remains hypoxic required BiPAP. Otherwise he is stable from a cardiovascular standpoint of view, beside mild sinus tachycardia was resting heart rate around 100 beats per minutes. Currently he is on metoprolol which was increased yesterday. We are avoiding any JOEL inhibitor or Aldactone at this point in the light of worsening kidney function. He is on Lasix and he has been making urine. I'm going to obtain a chest x-ray this morning and also NT-proBNP. We might need to consider doing right heart cathet erization to assess his fluid status if his creatinine is getting worse. We'll follow-up with the patient. March 152021 The patient was seen this morning. He is in mild respiratory distress and seems to be tachypneic and tachycardic. Unfortunately he has not been taking the metoprolol because he failed swallow evaluation yesterday. His resting heart rate about 130 bpm. I'm going to start the patient on beta jd IV with metoprolol 2.5 mg every 6 hours. He still slightly congested on examination. He is on Lasix 20 mg IV daily. Overall the prognosis is poor March 162021 The patient was seen and evaluated this morning. Unfortunately he is not doing well from a cardiovascular standpoint of view. He is hemodynamically unstable. He is not making any urine. The intensive care team is in process of moving discussion with the family regarding the prognosis and possible go for comfort care Objective - Vital Signs Vital signs: Vital Signs Temp 97.9 F 03/16/22 04:00 Pulse 96 03/16/22 07:00 Resp 4 L 03/16/22 07:00 BP 82/59 03/16/22 07:00 Pulse Ox 98 03/16/22 07:39 FiO2 36 03/16/22 07:39 Intake & Output 03/15/22 03/16/22 03/16/22 18:59 06:59 18:59 Intake Total 1150 1320 110 Output Total 1540 195 10 Balance -390 1125 100 Intake: IV 1150 1320 110 0.9 @ KVO 50 120 10 Dextrose 5% in Water 1, 800 1200 100 000 ml @ 125 mls/hr IV . Q8H [facility] Rx#:[id number] Piperacillin-Tazobactam 3 100 .375 gm In Sodium Chloride 0.9% 100 ml @ 25 mls/hr IVPB Q8H [facility] Rx#: [id number] Potassium Chloride 10 meq 200 In Water For Injection 1 100ml.bag @ 100 mls/hr IVPB Q1HR [facility] Rx#: [id number] Output: Urine 1540 195 10 Other: Voiding Method External Catheter Indwelling Catheter - Constitutional General appearance: Present: no acute distress - Respiratory Respiratory: bilateral: diminished - Cardiovascular Rhythm: regular - Labs CBC & Chem 7: 03/16/22 05:23 03/16/22 05:23 Labs: Abnormal Lab Results - Last 24 Hours (Table) 03/15/22 03/15/22 03/15/22 Range/Units 05:43 11:37 17:46 WBC 1.1 L* (3.8-10.6) k/uL RBC (4.30-5.90) m/uL Hgb (13.0-17.5) gm/dL Hct (39.0-53.0) % RDW (11.5-15.5) % Plt Count 15 L* D (150-450) k/uL Neutrophils # (Manual) 0.20 L* (1.3-7.7) k/uL Lymphocytes # (Manual) 0.79 L (1.0-4.8) k/uL Nucleated RBCs 26 H (0-0) /100 WBC Sodium 154 H (137-145) mmol/L Chloride 121 H (98-107) mmol/L BUN 95 H (9-20) mg/dL Creatinine 2.45 H (0.66-1.25) mg/dL Glucose 144 H (74-99) mg/dL POC Glucose (mg/dL) 127 H (70-110) mg/dL Calcium 7.7 L (8.4-10.2) mg/dL Magnesium (1.6-2.3) mg/dL 03/16/22 03/16/22 03/16/22 Range/Units 00:17 05:23 05:23 WBC 1.1 L* (3.8-10.6) k/uL RBC 4.13 L (4.30-5.90) m/uL Hgb 12.1 L (13.0-17.5) gm/dL Hct 38.7 L (39.0-53.0) % RDW 20.3 H (11.5-15.5) % Plt Count 15 L* (150-450) k/uL Neutrophils # (Manual) 0.10 L* (1.3-7.7) k/uL Lymphocytes # (Manual) 0.88 L (1.0-4.8) k/uL Nucleated RBCs 52 H (0-0) /100 WBC Sodium 152 H (137-145) mmol/L Chloride 118 H (98-107) mmol/L BUN 112 H* (9-20) mg/dL Creatinine 3.98 H (0.66-1.25) mg/dL Glucose 148 H (74-99) mg/dL POC Glucose (mg/dL) 154 H (70-110) mg/dL Calcium 7.4 L (8.4-10.2) mg/dL Magnesium 3.0 H (1.6-2.3) mg/dL Microbiology - Last 24 Hours (Table) 03/12/22 02:04 Blood Culture - Preliminary Blood No Growth after 96 hours 03/11/22 17:11 Blood Culture - Preliminary Blood No Growth after 96 hours 03/11/22 17:09 Blood Culture - Preliminary Blood No Growth after 96 hours Assessment and Plan Assessment: Assessment #1 history of colorectal cancer #2 severe LV dysfunction and likely to be nonischemic #3 heart failure with reduced ejection fraction exacerbation #4 sinus tachycardia #5 multiple comorbid conditions Plan Continue the current medical regimen The prognosis is extremely poor
[2022-03-16] MEDS ORDERED: MORPHINE SULFATE 2 MG/ML SYRINGE IV PRN (08:37)
[2022-03-16] MEDS ORDERED: ATROPINE OPHTH SOLN 1% 5ML BTL SUBLINGUAL PRN (08:37)
[2022-03-16] MEDS ORDERED: MORPHINE SULFATE 4 MG/ML SYRINGE IV PRN (08:37)
[2022-03-16] MEDS: MAG HYDROX/AL HYDROX/SIMETH 30 ML, LIDOCAINE VISCOUS 2% 30 ML, diphenhydrAMINE ELIXIR 7... PO SCH ×4 (08:41)
[2022-03-16] MEDS ORDERED: MORPHINE SULFATE (100 MG/2 ML) 100 MG in SODIUM CHLORIDE 0.9% 100 ML IV SCH (09:45)
[2022-03-16 10:31] VITALS: PULSE 108; RESP 41
[2022-03-16] MEDS: DEXTROSE 5% IN WATER 1,000 ML IV SCH (10:50)
[2022-03-16] MEDS: LORazepam 2 MG/ML INJ IV PRN (12:07)
[2022-03-16 12:43] VITALS: BP 74/61
--- NOTE | 2022-03-16 15:06 | P.DS ---
Providers Date of admission: 03/11/22 17:26 Expected date of discharge: 03/16/22 Attending physician: Da Landeros Consults: 03/11/22 15:53 Consult Physician Urgent Consulting Provider: Peter Flores Consult Reason/Comments: est patient Do you want consulting provider notified?: Yes Consult Physician Urgent Consulting Provider: Anthony Rodriguez Consult Reason/Comments: NSTEMI, CHF Do you want consulting provider notified?: Yes 03/11/22 18:26 Consult Physician Urgent Consulting Provider: Kevin Salomon Consult Reason/Comments: dyspnea, lactic acidosis Do you want consulting provider notified?: Already Contacted 03/12/22 09:53 Consult Physician Routine Consulting Provider: Yonis Montenegro Consult Reason/Comments: increased lactic, possible sepsis Do you want consulting provider notified?: Yes 03/14/22 19:48 Consult Physician Routine Consulting Provider: Eloy Guevara Consult Reason/Comments: Worsening sodium renal function Do you want consulting provider notified?: Yes Primary care physician: Candida Oshea [facility] Course: Chief Complaint: Short of breath This is a pleasant 62-year-old patient, follows with Dr. Candida Oshea. Pat ient follows with oncologist Dr. Flores. Patient has a diagnosis of colorectal cancer diagnosed about 4/2 years ago. Recently patient had bowel obstruction surgery with Dr. Lott. And has a resulting colostomy. Currently getting chemotherapy. Last chemotherapy was 4 days ago. Patient has become short of breath. Tired. Decreased appetite. Patient initially presented to outside hospital read his UA was negative, lactic acid was 5 troponin was 0.359 tachycardic negative for COVID RSV influenza. ProBNP was 28,300. Given IV fluids. No fever no chills. Tired rundown. Patient is accompanied by the at the ER.-Where I saw the patient. Patient has no previous cardiac history. No urinary symptoms. Stool output has not changed. Patient bit of mid suspected chemotherapy-induced myocarditis, causing troponin leak sinus tachycardia. Started on IV fluids being moved to ICU 03/12/2022: ICU: Patient spiked a fever last night. Patient empirically on vancomycin. Zosyn. Started on IV Lasix. IV fluids held. Lopressor. Poor appetite. Tired. Discussed with at the bedside. 03/13/2022: ICU. Septic. Patient on IV Zosyn and vancomycin. Vancomycin being discontinued because of worsening renal function. EF is come back to be 15%. Lasix reduced to 20 mg IV. Poor oral intake. Short of breath. On BiPAP 03/14/50%. Patient has been delirious. Some pancytopenia. Lopressor increased by cardiology to 50 mg twice a day. Spoke to the at the bedside. Suspected ischemic hepatitis 03/14/2022: ICU. Patient not irritable. On IV Zosyn. Still somewhat delirious. at the bedside. On IV Lasix 20 mg. 03/15/2022: ICU. On AIRVO. IV Zosyn. IV Lasix 20 mg. D5W started 100 mL an hour. Patient remains delirious. Nothing by mouth because of high risk of aspiration. 03/16/2022: Patient is earlier made comfort care by family. and son at the bedside. Patient succumbed underlying condition. . Spoke to the afterwards. No questions. Past medical history to include: Colorectal cancer with resultant colostomy, osteoarthritis, questionable CHF Social history: . Does not smoke or drink alcohol. [place] Family history: Reviewed, noncontributory to presentation INVESTIGATIONS, reviewed in the clinical context: 03/15/2022: WBC 1.1 hemoglobin 13.4 platelets 15 neutrophils 0.2 sodium 156 progression 3.2 BUN 75 creatinine 1.7 to 03/14/2022: WBC 1.7 hemoglobin 13.8 platelets 44 sodium 151 potassium 3.9 BUN 62 creatinine 1.56 AST 225 ALT 373 Abdominal ultrasound: Unremarkable 03/13/2022: WBC 2.3 hemoglobin 12.5 platelets 78 potassium 3.9 BUN 54 creatinine 1.53 lactic acid 5.5 AST 682 ALT 492 procalcitonin 32.2 lactic acid 5.5 proBNP 68619 03/12/2022: WBC 6.9 hemoglobin 11.9 platelets 163 potassium 4.8 BUN 36 creatinin e 1.24. Lactic acid 11.2 AST 189 ALT 133 Blood work from onset hospital: UA negative, lactic acid 5, COVID 19/RSV/influenza/not detected White count 8.4 hemoglobin 13.1 platelets 296 proBNP 28,300 sodium 138 potassium 4.8 BUN 34 creatinine 1.1 AST [address] chest: Negative for PE, scattered nodular density EKG tracing personally reviewed by me-sinus tachycardia with flipped T waves Cause of : Colorectal cancer Assessment and plan: - chemotherapy-induced myocarditis, manifesting as sinus tachycardia, troponin leak, resulting in shortness of breath: Slow to respond IV fluids. Supportive care. Telemetry. Watch for arrhythmias. Follow with Cardiology -Acute hypoxic respiratory failure, possible early ARDS: Slow to respond AIRVO -Hypernatremia from free water deficit: Worsening Patient on IV Lasix. Consult nephrology. Started on D5W 100 mL out. -Acute Cardiotoxicity/cardiomyopathy secondary to chemotherapy. Nonischemic. EF 15% Follow fluid balance closely. -Pancytopenia secondary to chemotherapy: Some worsening Follow CBC -Ischemic hepatitis: Slow to respond Follow blood pressure closely. -Acute metabolic encephalopathy/delirium from sepsis: Slow to respond -Sepsis, with fever, tachycardia lactic acidosis: Slow to respond Empirically on IV Zosyn. UA,, blood culture, -Acute kidney injury suspect ATN from cardiorenal syndrome/sepsis: Worsening Follow renal function closely. Follow with nephrology -Clinical dehydration: On presentation -Colostomy care -Troponin leak from myocarditis secondary to chemotherapy Disposition: Patient Plan - Discharge Summary New Discharge Prescriptions: No Action Omeprazole [PriLOSEC] 40 mg PO DAILY HYDROcodone/APAP 5-325MG [[place] 5-325] 1 tab PO Q4HR PRN PRN Reason: Pain Diphenoxylate HCl/Atropine [Lomotil 2.5-0.025 mg Tablet] 1 tab PO BID PRN PRN Reason: Diarrhea Lidocaine Viscous 2% [Xylocaine Viscous] 1 dose MUCOUS MEM BID PRN PRN Reason: Pain Discharge Medication List Diphenoxylate HCl/Atropine [Lomotil 2.5-0.025 mg Tablet] 1 tab PO BID PRN 03/11/22 [History] HYDROcodone/APAP 5-325MG [[place] 5-325] 1 tab PO Q4HR PRN 03/11/22 [History] Lidocaine Viscous 2% [Xylocaine Viscous] 1 dose MUCOUS MEM BID PRN 03/11/22 [History] Omeprazole [PriLOSEC] 40 mg PO DAILY 03/11/22 [History] Follow up Appointment(s)/Referral(s): Candida Oshea MD [Primary Care Provider] - 1-2 days
== END 2022-03-16 15:45 | disposition expired | DRG 871 ==
LOC: EC 14:25 → 3SCARD 17:26 → 2SICU 03-12 00:53
PROVIDERS: ADMIT Hospitalist; ATTEND Hospitalist
PROC: 5A09357 Assistance with Respiratory Ventilation, Less than 24 Consecutive Hours, Continuous Positive Airway Pressure (ICD-10-PCS; principal; 2022-03-13)
DX: A41.9 Sepsis, unspecified organism (principal); D61.810 Antineoplastic chemotherapy induced pancytopenia; I21.4 Non-ST elevation (NSTEMI) myocardial infarction; I50.23 Acute on chronic systolic (congestive) heart failure; J96.01 Acute respiratory failure with hypoxia; K72.00 Acute and subacute hepatic failure without coma; N17.0 Acute kidney failure with tubular necrosis; G93.41 Metabolic encephalopathy; I42.7 Cardiomyopathy due to drug and external agent; K82.1 Hydrops of gallbladder; C19 Malignant neoplasm of rectosigmoid junction; E87.0 Hyperosmolality and hypernatremia; F05 Delirium due to known physiological condition; C77.5 Secondary and unspecified malignant neoplasm of intrapelvic lymph nodes; E87.20 Acidosis, unspecified; I42.0 Dilated cardiomyopathy; I51.4 Myocarditis, unspecified; Z43.3 Encounter for attention to colostomy; Z66 Do not resuscitate; Z51.5 Encounter for palliative care; T45.1X5A Adverse effect of antineoplastic and immunosuppressive drugs, initial encounter; G89.3 Neoplasm related pain (acute) (chronic); G62.9 Polyneuropathy, unspecified; E86.0 Dehydration; K80.20 Calculus of gallbladder without cholecystitis without obstruction; F41.9 Anxiety disorder, unspecified; E87.6 Hypokalemia; G47.30 Sleep apnea, unspecified; K21.9 Gastro-esophageal reflux disease without esophagitis; R91.1 Solitary pulmonary nodule; M19.90 Unspecified osteoarthritis, unspecified site; Z79.899 Other long term (current) drug therapy; Z95.5 Presence of coronary angioplasty implant and graft
CPT/HCPCS: 36415; 36600; 71045; 76700; 80048; 80053; 81001; 82140; 82565; 82805; 83605; 83735; 83880; 84145; 84484; 85025; 85379; 85384; 85610; 85730; 87040; 87070; 93005; 93306; 93970; 94660; 96361; 96365; 96375; 99291